=== PATIENT | female | born 1945 | race Caucasian/White ===

== ENCOUNTER 2024-11-28 13:00 | Inpatient (IN) | payer MEDICARE, OTHER, SELFPAY ==
[2024-11-28] VITALS (9 sets, daily range): BP systolic 60–116; BP diastolic 48–61; BMI 20.4; BMI 20.3
[2024-11-28 10:51] LABS: Hematocrit 34.8 % (37.0-47.0); Hemoglobin 12.9 g/dL (12.0-16.0); Mean Corp Hgb Conc. 37.1 g/dL (33.0-37.0); Mean Corpuscular Volume 94.6 fL (81.0-99.0); Nucleated Red Blood Cells % 0 %; Platelet Count 176 10^3/uL (130-400); Red Cell Dist. Width 15.5 % (11.5-14.5)
[2024-11-28 11:12] LABS: APTT 34.1 Sec (23.4-35.0); INR 1.66; PT 19.8 Sec (11.4-14.6)
[2024-11-28 11:27] LABS: Blood Urea Nitrogen 50 mg/dl (7-17); Calcium 8.4 mg/dl (8.4-10.2); Carbon Dioxide 20 mmol/L (22-30); Chloride 99 mmol/L (98-107); Estimated Creatinine Clearance 26 ml/min; Glucose 136 mg/dl (70-99); Sodium 126 mmol/L (135-145); eGFR 41.31
--- NOTE | 2024-11-28 12:01 | ED.GENMED ---
History of Present Illness
General
Chief Complaint: Abdominal Symptoms
Source: patient
Exam Limitations: none
Time Seen by Provider: 11/28/24 10:48
Nursing documentation reviewed up to this point in time: agreed with
History of Present Illness
History of Present Illness:
79-year-old female with a history of former alcohol abuse and liver cirrhosis, history of hyponatremia, A-fib status post pacer/ICD on Eliquis
Presents for fatigue, increasing weight gain and edema in her legs and abdomen and nausea with abnormal outpatient labs. Patient says she got diagnosed with cirrhosis in May 2024 at [facility] where she was hospitalized for period of
time. During that admission she was hyponatremic and was on fluid restriction but says she is no longer needing to be on fluid restriction. Within the last month patient has had several pounds weight gain and she saw her reporting developer at
[facility] about 2 weeks ago who doubled her spironolactone from 50 mg to 100 daily and doubled her furosemide from 20 mg to 40 daily. Patient has been compliant with this but continuing to gain weight. She feels uncomfortable in her
abdomen although she is not having significant tenderness or fevers. Patient scheduled for paracentesis in 2 weeks but she does not feel like she can wait that long. She had outpatient labs yesterday with the results today that her sodium was 123.
Patient is not confused and is at her baseline mental status.
She does have a history of cardiomyopathy previously but her EF recovered she believes.
Past History
Past History
ED Past Medical History: CAD, Cancer (Breast), CHF and Hypothyroidism
ED Past Surgical History: Cardiac (AICD/pacemaker)
Social History
Tobacco: Non-smoker
Review of Systems
Review of Systems
Allergies reviewed?: Yes
All Other Systems: Not applicable
Phy Exam
Physical Exam
Physical Exam:
GENERAL: Alert , in no apparent distress
EYE: pupils equal and reactive
NECK: Supple
ENT: o/p clr, mmm.
CARDIAC: Regular rate and rhythm . Moderate pitting edema symmetric bilateral knees down to feet
LUNGS: Clear breath sounds bilaterally, no acute respiratory distress, no wheezes/rales/rhonchi
ABDOMEN: Soft, moderately distended, soft, fluid wave, no tenderness ut focal tenderness, no r/g, no cvat, normal bowel sounds
NEUROLOGICAL: Alert and oriented, no focal neuro deficits
SKIN: Warm and dry, skin intact. Slightly icteric
MUSCULOSKELETAL: Moderate pitting edema, well perfused. neg daisy's sign
PSYCH: Normal and appropriate interaction.
Course
Orders/Labs/Results
Orders:
Orders
11/28/24 09:55
Electrocardiogram (*1) Urgent
Reason for Study: Fatigue / Weakness
EKG- Treatment ONCE
11/28/24 10:42
Basic Metabolic Panel Urgent
Complete Blood Count/With Diff Urgent
INR [Prothrombin Time] Urgent
PTT Urgent
11/28/24 11:40
Consult Interventional Radiology [IRAD CONSULT] Urgent
Consulting Provider: Arturo Leal
Was physician already notified: Yes
Procedure being ordered, including laterality if applicable: paracentesis
Acknowledgement that appropriate orders are entered: Yes
CR Chest - 2 Views Urgent
Comment:
Reason For Exam: edema
11/28/24 11:50
Ammonia Urgent
Comprehensive Metabolic Panel Urgent
NT-proBNP Urgent
Osmolality, Random Urine Urgent
Date Specimen was Collected: 11/28/24
Time Specimen was Collected: 11:46
Urinalysis Reflex To Culture Urgent
Date Specimen was Collected: 11/28/24
Time Specimen was Collected: 11:46
Urine Microscopic Reflex Cult Urgent
Urine Sodium Urgent
Date Specimen was Collected: 11/28/24
Time Specimen was Collected: 11:46
11/28/24 12:35
Body Fluid Amylase Routine
Fluid Source: Peritoneal (Ascites)
Body Fluid Cell Count Routine
What is the Body Fluid: peritoneal fluid
Comment: post procedure
Body Fluid LDH Routine
Fluid Source: Peritoneal (Ascites)
Body Fluid Protein Routine
Fluid Source: Peritoneal (Ascites)
Fluid Culture with Gram Stain Routine
ALICIA Source: Peritoneal Fluid
Specimen Description:
Comment: Post Procedure
IRAD Cytology Routine
Source: Peritoneal Fluid
Clinical Impression: Cirrhosis
11/28/24 12:36
Notify MD As Directed
Notify physician if: Notify Janet Rankin PA-C of volume removed when paracentesis complete.
11/28/24 12:39
Admit/Transfer Patient As Directed
Co-Sign Provider:
Level of Care: Inpatient admission
Assign to:: Medical/Surgical
Physician / Group: Natasha
Diagnosis: Hyponatremia, Ascites
Reason for Hospitalization: Paracentesis, Diuresis
Expected length of stay greater than two midnights?: Yes
ELOS- Estimated Length of Stay in days: 3
I certify the patient meets the requirements for IP care: Yes
PRN Pain Medication Management As Directed
May give lesser potent ordered pain med per pt: Yes
preference::
Protocol:: Medication orders for pain may be administered in a
manner that supports deferring to patient preference
when the pt is:
- Requesting an ordered lesser potent pain medication.
Least to most potent pain medications are defined
as: acetaminophen < NSAID < tramadol < opioids
(morphine, oxycodone, hydromorphone).
- Requesting a lesser dose of the same medication IF
ORDERED.
- Requesting a less intrusive route of administration
if both routes are prescribed by the provider (PO <
IV).
11/28/24 12:40
Code Status As Directed
Resuscitation Status: Full Code
Abnormal Lab Results
11/28/24 11/28/24
10:42 11:50
RBC 3.68 L 10^6/uL
(4.20-5.40)
Hct 34.8 L %
(37.0-47.0)
MCH 35.1 H pg
(27.0-31.0)
MCHC 37.1 H g/dL
(33.0-37.0)
RDW 15.5 H %
(11.5-14.5)
Abs Immat Gran (auto) 0.1 H 10^3/uL
(0-0.05)
Absolute Neuts (auto) 8.2 H 10^3/uL
(1.4-6.5)
Absolute Lymphs (auto) 0.9 L 10^3/uL
(1.2-3.4)
Absolute Monos (auto) 1.1 H 10^3/uL
(0.1-0.6)
Immature Gran % 1.0 H %
(0-0.5)
Neutrophils % 79.2 H %
(42.2-75.2)
Lymphocytes % 8.4 L %
(20.5-51.1)
Monocytes % 10.4 H %
(1.7-9.3)
PT 19.8 H Sec
(11.4-14.6)
Sodium 126 L mmol/L 124 L mmol/L
(135-145) (135-145)
Chloride 97 L mmol/L
(98-107)
Carbon Dioxide 20 L mmol/L 21 L mmol/L
(22-30) (22-30)
BUN 50 H mg/dl 49 H mg/dl
(7-17) (7-17)
Creatinine 1.3 H mg/dL 1.4 H mg/dL
(0.6-1.0) (0.6-1.0)
Glucose 136 H mg/dl 101 H mg/dl
(70-99) (70-99)
Calcium 7.7 L mg/dl
(8.4-10.2)
AST 87 H U/L
(14-36)
ALT 69 H U/L
(0-35)
Albumin 2.8 L g/dl
(3.5-5.0)
Urine Albumin (Reflex) 1+ A
(Neg - Trace)
11/28/24 10:42
11/28/24 11:50
Vital Signs
Initial and Last Documented VS:
Initial Vital Signs
Temp Pulse Resp BP Pulse Ox
36.3 C 65 16 98/52 99
11/28/24 10:00 11/28/24 10:00 11/28/24 10:00 11/28/24 10:00 11/28/24 10:00
Last Documented Vital Signs
Temp Pulse Resp BP Pulse Ox
37.0 C 60 11 94/55 98
11/28/24 11:00 11/28/24 12:30 11/28/24 12:30 11/28/24 12:22 11/28/24 12:30
MDM/Problems Addressed
Differential Diagnosis Includes:
Heart failure, cirrhosis and third spacing, hyponatremia, SIADH, overdiuresis,
MDM/Problems Addressed:
79 y/o F cirrhosis (s/p para x 31 may 2024 [facility]) [facility]
inc edema/weight gain x 2 weeks; doubled diuretics; sodium 123 outpatient/126 here; fatigued, nausea/weak
IR consulted for para (therapeutic)
*Pulse Oximetry
SaO2: 98
Oxygen Mode of Delivery: Room air
Patient hypoxic: no (99)
*Critical Care Note
Total Time (30-74mins, 75-104mins- exclusive of procedures): Not Applicable
ED Attending Note
-
Portions of this chart may have been created with voice recognition software.� Occasional wrong word or��sound alike� substitutions may have occurred due to the inherent limitations of voice recognition software.
Discharge Plan
Departure
Patient Disposition: Admit
Date of Disposition: 11/28/24
Time of Disposition: 12:13
Admit to: Telemetry
Presentation/result/management discussed w/ accepting MD/DO: Hospitalist
Condition: Fair
Covid-19: Not Applicable
Discharge Problem:
Hyponatremia, Edema, Cirrhosis of liver, Ascites
Interventions
Interventions:
*Risk Screen - Suicide Last Done: 11/28/24 11:00
*General Assessment Last Done: 11/28/24 11:00
*Neglect/Abuse Screening Last Done: 11/28/24 11:00
*ED- Fall Risk Assessment Last Done: 11/28/24 11:00
*ED COVID-19 Vaccine History Last Done: 11/28/24 11:00
*Nursing Disposition Last Done: 11/28/24 14:12
DQ-Rijvxo-Deoenoszxb Assessment Last Done: 11/28/24 11:00
Discharge Date and Time
Discharge Date/Time: 11/28/24 14:16
[2024-11-28 12:21] LABS: Ammonia 27 umol/L (9-30)
[2024-11-28 12:28] LABS: ALT (SGPT) 69 U/L (0-35); AST (SGOT) 87 U/L (14-36); Albumin 2.8 g/dl (3.5-5.0); Alkaline Phosphatase 124 U/L (38-126); Blood Urea Nitrogen 49 mg/dl (7-17); Calcium 7.7 mg/dl (8.4-10.2); Carbon Dioxide 21 mmol/L (22-30); Chloride 97 mmol/L (98-107); Estimated Creatinine Clearance 24 ml/min; Glucose 101 mg/dl (70-99); Potassium 4.8 mmol/L (3.5-5.1); Sodium 124 mmol/L (135-145); Total Protein 6.4 g/dl (6.3-8.2); eGFR 37.80
--- NOTE | 2024-11-28 12:42 | HPS.HSE ---
Family Physician
-
Family Physician: Ugo Kendall
Chief Complaint
-
Increasing abdominal distension and lower extremity edema
History of Present Illness
Patient is an 79 y/o female past medical history of heart failure with recovered EF, paroxysmal atrial fibrillation, alcoholic cirrhosis, asthma, hyperlipidemia, and hypothyroidism who presents with increased abdominal distension and lower extremity
edema. Patient reports earlier this year she was hospitalization at [facility] due to a GI illness and that time she had a paracentesis. She reports doing well up until about the end of September when she started with increased distention and
lower extremity edema. She contacted her liver specialist who instructed her to double her diuretics and have blood work completed after 2 weeks which she completed yesterday. Patient reports some increasing dyspnea on exertion and slight dry
cough. She denies fevers, sweats or chills.
Medical History
Past Medical History
Past Medical History: Reports Other
Additional Past Medical History:
Congestive Heart Failure with Recovered EF
Cardiomyopathy s/p ICD
Paroxysmal Atrial Fibrillation
Alcoholic Cirrhosis
Asthma
Hyperlipidemia
Hypothyroidism
Depression
GERD
Left Breast Cancer s/p Lumpectomy
Past Surgical History: Reports Other
Additional Past Surgical History:
Left Breast Lumpectomy
Pacemaker/Defibrillator
Bilateral Cataracts
Social History
Tobacco: Former Smoker (Quit about 40 years ago)
Alcohol: Former (Sober since 2019)
Family History
Family History: Not pertinent
Allergies / Home Medications
Allergies reflects when Allergies were last updated in [employer].
Home Medications with original date entered in [employer]
Allergy/Medication List:
Allergies
Allergy/AdvReac Type Severity Reaction Status Date / Time
No Known Allergies Allergy Unverified 11/16/19 04:45
Home Medications
apixaban 5 mg tablet (Eliquis) 5 mg PO BID #60 tabs 11/16/19
fluticasone propionate 50 mcg/actuation nasal spray,suspension 2 spray intranasal HS Allergies 11/16/19
levothyroxine 100 mcg tablet 100 mcg PO DAILY Thyroid 11/16/19
rosuvastatin 5 mg tablet 5 mg PO QPM High cholesterol 11/16/19
amiodarone 200 mg tablet 200 mg PO DAILY 11/28/24
carvedilol 12.5 mg tablet 25 mg PO BID 11/28/24
fluticasone furoate 200 mcg/actuation blister powder for inhalation (Arnuity Ellipta) 1 inh inhalation DAILY 11/28/24
furosemide 40 mg tablet 40 mg PO DAILY 11/28/24
latanoprost 0.005 % eye drops 1 drp ophthalmic (eye) DAILY 11/28/24
lisinopril 5 mg tablet 2.5 mg PO DAILY 11/28/24
pantoprazole 40 mg tablet,delayed release 40 mg PO DAILY 11/28/24
spironolactone 100 mg tablet 100 mg PO DAILY 11/28/24
Review of Systems
-
History Source: Patient
A 12 point ROS was completed and negative except as noted: Yes
Constitutional: Denies Fever or Chills
Respiratory: Denies Cough or Trouble Breathing
Cardiac: Denies Chest Pain or Palpitations
Abdomen/GI: Denies Abdominal Pain, Nausea, Vomiting, Diarrhea or Constipated
Physical Exam
Vital Signs
Vital Signs
Temp Pulse Resp BP Pulse Ox
98.6 F 60 14 94/55 98
11/28/24 11:00 11/28/24 12:22 11/28/24 12:22 11/28/24 12:22 11/28/24 12:22
Physical Exam
General: Well Developed, Well Nourished and No Apparent Distress
HEENT: NormoCephalic, Anicteric, Moist mucous membranes and Atraumatic
Respiratory: Clear and Non Labored Respirations; No Wheezes, Rales or Rhonchi
Cardiac: S1/S2 and Regular Rhythm; No Murmur
GI: Soft, Non Tender and Distended (Positive Fluid Wave)
Rectal: Deferred by Provider
Musculoskeletal: No Clubbing, No Cyanosis and Other (Trace edema bilateral ankles)
Skin: Warm and Dry; No Rash
Neuro: Awake, Alert, Oriented and Nonfocal/grossly intact
Psych: Calm
Laboratory Results
-
11/28/24 10:42
11/28/24 11:50
Laboratory Results
PT 19.8 Sec (11.4-14.6) H 11/28/24 10:42
INR 1.66 11/28/24 10:42
APTT 34.1 Sec (23.4-35.0) 11/28/24 10:42
Total Bilirubin 1.3 mg/dl (0.2-1.3) 11/28/24 11:50
AST 87 U/L (14-36) H 11/28/24 11:50
ALT 69 U/L (0-35) H 11/28/24 11:50
Alkaline Phosphatase 124 U/L (38-126) 11/28/24 11:50
Data Reviewed
-
Lab Data: Labs Reviewed by me
Old Records: Reviewed
Impression/Plan
-
Hyponatremia, likely hypervolemic in setting of edema and ascites
-Await urine electrolytes
-Continue fluid restriction
-Consult Nephrology
Abdominal Ascites secondary to Alcoholic Cirrhosis
-Consult IR for paracentesis
-Will likely need albumin given in setting of low blood pressure and hyponatremia
Acute Kidney Injury, likely related to increased diuretics
-Hold furosemide and spironolactone
-Continue to monitor creatinine closely
Congestive Heart Failure with Recovered EF
Hx Cardiomyopathy s/p ICD
-Monitor Is&Os and Daily Weights
-Diuretics on hold due to YEISON
Paroxysmal Atrial Fibrillation
-Hold Coreg due ot hypotension
-Continue amiodarone
-Continue Eliquis for anticoagulation
Asthma, no acute exacerbation
-Continue fluticasone
Hyperlipidemia
-Continue Crestor
Hypothyroidism
-Check TSH
-Continue levothyroxine
GERD
-Continue Protonix
Hx Left Breast Cancer s/p Lumpectomy
DVT proph: Eliquis
Code Status: Full Code
[2024-11-28 13:57] LABS: Urine Character Clear (Clear)
--- NOTE | 2024-11-28 14:08 | W.PN.UPDATE ---
Update Note
Progress Note Update
This is an addendum to H&P written by Janet Arzola on 11/28/2024. �Patient seen and examined independently with PA.
79-year-old female past medical history of alcoholic cirrhosis, ischemic cardiomyopathy with recovered EF, paroxysmal atrial fibrillation on Eliquis, asthma, hypothyroidism, hyperlipidemia, breast cancer, presenting for worsening abdominal
distention and lower extremity edema.
Recently hospital to [place] earlier this year for some sort of GI infection. �Doing well until end of September with increasing abdominal distention. �Diuretics doses doubled 2 weeks ago.
Labs show hyponatremia with sodium of 126, creatinine of 1.3, transaminitis. �Cardiac BNP of 560.
Chest x-ray shows no acute process.
Patient with ascites secondary to underlying alcoholic cirrhosis.
Patient with ascites secondary to underlying alcoholic cirrhosis. �No signs of SBP. �Patient hypotensive with hyponatremia secondary to volume overload. �YEISON appears to be prerenal. �Hold diuretics, antihypertensive medications. �IR consulted for
paracentesis. �Will require albumin afterwards. �GI and nephrology consulted.
--- NOTE | 2024-11-28 14:11 | EDRN ---
IR called this RN and verbal report was given, per IR nurse the pt can go to her room after, this RN called the receiving unit and paper report was tubed up
--- NOTE | 2024-11-28 14:37 | W.CON.NEPH ---
Addendum entered and electronically signed by Cm Doe MD 11/28/24 17:31:
Hyponatremia as a result of liver failure. Improvement of hemodynamics should control the hyponatremia.
If sodium continues to fall, hypertonic saline could be considered
Original Note:
Consultation
-
Date/Time Consultation Requested: 11/28/2024 2 PM
Date/Time Consultation Performed: 11/28/2024 2 PM
Requesting Provider: Dr. Kaur
Performing Provider: Dr. Doe
Reason for Consultation: YEISON, hyponatremia
Medical History
-
Chief Complaint: YEISON, hyponatremia, hypotension
History of Present Illness:
This is an 79-year-old female who has alcoholic cirrhosis followed by [facility] gastroenterology hepatology. He has paroxysmal atrial fibrillation on Eliquis therapy and rate control with beta-garland therapy. She also is on
amiodarone. She has hypertension on a multidrug regimen as well as hyperlipidemia on statin therapy. These have been fairly stable for her. She does report that she has chronically lower blood pressures typically in the 90 systolic range. About
2 weeks ago she had reported increasing abdominal distention. The edema was generally not an issue for her. Because of this it was recommended that she double her diuretic dosing including her Lasix and spironolactone from 20 mg and 50 mg
respectively up to 40 mg and 100 mg respectively daily. Tomorrow the 14 day. She reports that there is no additional diuresis with this higher dosing. If anything her ascites and abdominal distention worsened. She had the chemo because of
these issues and also because outpatient paracentesis scheduled by [facility] was not until December 11. At the time of admission she did have significant ascites and underwent paracentesis for 2.3 L. She was also noted to have a
sodium level of 124 and a creatinine of 1.4. Last known creatinine was 0.6 in 2019.
Past Medical History
Congestive Heart Failure with Recovered EF
Paroxysmal Atrial Fibrillation
Alcoholic Cirrhosis
Asthma
Hyperlipidemia
Hypothyroidism
Depression
GERD
Left Breast Cancer s/p Lumpectomy
Pacemaker/Defibrillator
Bilateral Cataracts
Social History
Tobacco: Former Smoker
Alcohol: None
Family History
Family History: Not Pertinent
Allergies / Home Medications
Allergy/AdvReac Type Severity Reaction Status Date / Time
No Known Allergies Allergy Unverified 11/16/19 04:45
�Medication �Instructions �Recorded �Confirmed �Type
fluticasone propionate 50 2 spray intranasal HS Allergies 11/16/19 11/28/24 History
mcg/actuation nasal
spray,suspension
levothyroxine 100 mcg tablet 100 mcg PO DAILY Thyroid 11/16/19 11/28/24 History
rosuvastatin 5 mg tablet 5 mg PO QPM High cholesterol 11/16/19 11/28/24 History
Bcaa Capsules 1,000 mg PO DAILY@1200 11/28/24 11/28/24 History
amiodarone 200 mg tablet 200 mg PO DAILY 11/28/24 11/28/24 History
apixaban 5 mg tablet (Eliquis) 2.5 mg PO BID 11/28/24 11/28/24 History
carvedilol 12.5 mg tablet 25 mg PO BID 11/28/24 11/28/24 History
fluticasone furoate 200 1 inh inhalation R DAILY 11/28/24 11/28/24 History
mcg/actuation blister powder for
inhalation (Arnuity Ellipta)
furosemide 40 mg tablet 40 mg PO DAILY 11/28/24 11/28/24 History
latanoprost 0.005 % eye drops 1 drp LEFT EYE HS 11/28/24 11/28/24 History
lisinopril 5 mg tablet 2.5 mg PO DAILY 11/28/24 11/28/24 History
pantoprazole 40 mg tablet,delayed 40 mg PO DAILY 11/28/24 11/28/24 History
release
spironolactone 100 mg tablet 100 mg PO DAILY 11/28/24 11/28/24 History
Review of Systems
-
Imbalance, bloating
No chest pain or shortness of breath
No change in edema
All other systems: Negative unless noted
Physical Exam
Vital Signs
Vital Signs
Temp Pulse Resp BP Pulse Ox
97.7 F 60 15 109/61 99
11/28/24 14:20 11/28/24 14:20 11/28/24 14:20 11/28/24 14:20 11/28/24 14:20
Lab Results
WBC 10.3 10^3/uL (4.8-10.8) 11/28/24 10:42
RBC 3.68 10^6/uL (4.20-5.40) L 11/28/24 10:42
Hgb 12.9 g/dL (12.0-16.0) 11/28/24 10:42
Hct 34.8 % (37.0-47.0) L 11/28/24 10:42
Plt Count 176 10^3/uL (130-400) 11/28/24 10:42
Potassium 4.8 mmol/L (3.5-5.1) 11/28/24 11:50
Chloride 97 mmol/L (98-107) L 11/28/24 11:50
Carbon Dioxide 21 mmol/L (22-30) L 11/28/24 11:50
BUN 49 mg/dl (7-17) H 11/28/24 11:50
Creatinine 1.4 mg/dL (0.6-1.0) H 11/28/24 11:50
eGFR 37.80 11/28/24 11:50
Glucose 101 mg/dl (70-99) H 11/28/24 11:50
Calcium 7.7 mg/dl (8.4-10.2) L 11/28/24 11:50
Jet-C-Exvmsejapni Pept 569 pg/ml 11/28/24 11:50
Albumin 2.8 g/dl (3.5-5.0) L 11/28/24 11:50
Laboratory Tests
11/28/24
11:50
Urine Osmolality 319
Urine Sodium 66
Urine Glucose Negative
Urine Albumin (Reflex) 1+ A
Laboratory Tests
11/28/24
11:50
Hyaline Casts >15
Granular Casts >15
Physical Exam
Patient is awake alert oriented and in no distress. Mood and affect were pleasant, insight and judgment were good. Pupils are equal round and reactive to light, extraocular movements are intact, sclera were anicteric. Hearing was normal, ears and
nose are intact. Oropharynx was clear. Neck was supple with trachea midline and no thyromegaly. Heart was regular rate and rhythm without rubs. Lower extremities with 1+ edema. Lungs were clear to auscultation bilaterally and with normal
excursion. Abdomen was soft, nontender, mild distention, with normal active bowel sounds, and no hepatosplenomegaly. Skin was without rash and with normal turgor.
Data Reviewed
-
Radiology: Image Personally Visualized and interpreted (Chest x-ray 11/28/2024 by my reading no acute disease)
Medical Tests (Nuc Med, Echo etc): Image Personally Visualized and interpreted (EKG 11/28/2024 by reading shows AV paced rhythm)
Labs: Labs Reviewed by me
Old Records: Requested
Assessment/Plan
-
Assessment
Cirrhosis
Ascites
YEISON
Hyponatremia
Paroxysmal atrial fibrillation
Hypothyroid
History of left breast cancer with lumpectomy
Hypotension
Plan
Obtain old records
Hold Lasix and spironolactone
IV albumin course
No need for midodrine at this time
I suspect that she is intravascularly depleted at this time.
Follow BMP
Discussed with patient and her children
[2024-11-28 14:51] LABS: Urine Squamous Cell 0-2 /LPF (Few)
[2024-11-28 14:53] LABS: Urine Red Blood Cell 0-2 /HPF (0-2)
[2024-11-28 16:03] LABS: Body Fluid Second Tech FB
[2024-11-28] MEDS: FLEXBUMIN 50 IV (16:14)
[2024-11-28] MEDS: CRESTOR 5 MG PO (17:14)
[2024-11-28] MEDS: FLEXBUMIN 100 IV (18:08)
[2024-11-28 19:24] LABS: Sodium 121 mmol/L (135-145)
[2024-11-28] MEDS: SODIUM CHLORIDE 3% 250 IV (19:58)
[2024-11-28] MEDS: ELIQUIS 2.5 MG PO (20:07)
[2024-11-28] MEDS: XALATAN OPHTHALMIC SOLUTION 1 DROP LEFT EYE (21:27)
--- NOTE | 2024-11-28 21:53 | PTCARENOTE ---
Repeat sodium 121. OUTSIDE SALES ENGINEER notified, 3% NaCl ordered. BMP ordered for 0000. pt aaox3 and call abbasi within reach. Plan of care ongoing.
[2024-11-29 00:59] LABS: Blood Urea Nitrogen 44 mg/dl (7-17); Calcium 8.0 mg/dl (8.4-10.2); Carbon Dioxide 20 mmol/L (22-30); Chloride 101 mmol/L (98-107); Estimated Creatinine Clearance 23 ml/min; Glucose 103 mg/dl (70-99); Potassium 4.7 mmol/L (3.5-5.1); Sodium 128 mmol/L (135-145); eGFR 37.80
[2024-11-29] MEDS: FLEXBUMIN 100 IV ×2 (01:11→10:02)
[2024-11-29] MEDS: SYNTHROID 100 MCG PO (06:27)
[2024-11-29 07:01] LABS: Hematocrit 30.5 % (37.0-47.0); Hemoglobin 11.3 g/dL (12.0-16.0); Mean Corp Hgb Conc. 37.0 g/dL (33.0-37.0); Mean Corpuscular Volume 94.1 fL (81.0-99.0); Platelet Count 137 10^3/uL (130-400); Red Cell Dist. Width 15.4 % (11.5-14.5)
[2024-11-29] MEDS: FLOVENT 110 MCG INHALER 2 PUFF INH ×2 (07:06→19:39)
[2024-11-29 07:19] VITALS: BP 113/60
[2024-11-29 07:40] LABS: ALT (SGPT) 57 U/L (0-35); AST (SGOT) 72 U/L (14-36); Albumin 3.5 g/dl (3.5-5.0); Alkaline Phosphatase 93 U/L (38-126); Blood Urea Nitrogen 41 mg/dl (7-17); Calcium 8.4 mg/dl (8.4-10.2); Carbon Dioxide 18 mmol/L (22-30); Chloride 102 mmol/L (98-107); Estimated Creatinine Clearance 24 ml/min; Glucose 74 mg/dl (70-99); Magnesium 2.2 mg/dl (1.6-2.3); Potassium 4.7 mmol/L (3.5-5.1); Sodium 128 mmol/L (135-145); Total Protein 6.5 g/dl (6.3-8.2); eGFR 41.31
[2024-11-29] MEDS: ELIQUIS 2.5 MG PO ×2 (07:53→21:13)
[2024-11-29] MEDS: PROTONIX 40 MG PO (07:53)
[2024-11-29] MEDS: PACERONE 200 MG PO (07:53)
[2024-11-29 10:33] VITALS: O2SAT 99
--- NOTE | 2024-11-29 12:02 | W.PN.NEPH.PH ---
Today's Communication / Plan
-
Continue albumin
Fluid restriction
Assessment/Plan
-
Assessment
Cirrhosis
Ascites
YEISON
Hyponatremia
Paroxysmal atrial fibrillation
Hypothyroid
History of left breast cancer with lumpectomy
Hypotension
Plan
Hold Lasix and spironolactone
IV albumin continue
No need for midodrine at this time
Follow BMP
sodium improved with 3% saline. No further indication at this time
Fluid restriction
Increase protein in diet
-
-
Date of Service: November 29, 2024
CC / HPI / ROS
-
Chief Complaint:
abdominal distention
History of Present Illness:
Acute kidney injury and hyponatremia status post paracentesis
Review of Systems:
No abdominal pain. No shortness of breath no nausea or vomiting
Labs
-
Labs:
WBC 8.4 10^3/uL (4.8-10.8) 11/29/24 06:07
RBC 3.24 10^6/uL (4.20-5.40) L 11/29/24 06:07
Hgb 11.3 g/dL (12.0-16.0) L 11/29/24 06:07
Hct 30.5 % (37.0-47.0) L 11/29/24 06:07
Plt Count 137 10^3/uL (130-400) D 11/29/24 06:07
Sodium 128 mmol/L (135-145) L 11/29/24 06:07
Potassium 4.7 mmol/L (3.5-5.1) 11/29/24 06:07
Chloride 102 mmol/L (98-107) 11/29/24 06:07
Carbon Dioxide 18 mmol/L (22-30) L 11/29/24 06:07
BUN 41 mg/dl (7-17) H 11/29/24 06:07
Creatinine 1.3 mg/dL (0.6-1.0) H 11/29/24 06:07
eGFR 41.31 11/29/24 06:07
Glucose 74 mg/dl (70-99) 11/29/24 06:07
Calcium 8.4 mg/dl (8.4-10.2) 11/29/24 06:07
Hay-W-Yibgeldoagu Pept 569 pg/ml 11/28/24 11:50
Albumin 3.5 g/dl (3.5-5.0) 11/29/24 06:07
Physical Exam
-
Vital Signs:
Vital Signs
Temp Pulse Resp BP Pulse Ox
97.9 F 61 18 113/60 99
11/29/24 07:19 11/29/24 07:53 11/29/24 07:19 11/29/24 07:53 11/29/24 10:33
Respiratory:: Bilateral: CTA
Lung Excursion:: Normal
Abdomen:: Soft
Bowel Sounds:: Normal
Extremity Edema:: +1: Bilateral:
--- NOTE | 2024-11-29 13:13 | W.PN.HOSP.TC ---
Today's Communication/Plan
-
Assessment / Plan
Assessment / Plan
General: No Apparent Distress, Comfortable and Conversant
HEENT: NormoCephalic, Moist mucous membranes, Atraumatic
Respiratory: Clear and Non Labored Respirations
Cardiac: S1/S2 and Regular Rhythm; No Rub or Gallop
GI: Soft, Non Tender, distended abdomen with positive fluid wave, normal Bowel Sounds
Musculoskeletal: No Edema, no deformity
Skin: Warm and dry
: NO Sanders
Neuro: Awake, Alert, Nonfocal/grossly intact
Psych: Calm and Intact Judgment/Insight
Ms. Santos is an 79-year-old female with a medical history of alcoholic cirrhosis, ischemic cardiomyopathy with recovered EF, paroxysmal A-fib (on Eliquis), asthma, hypothyroidism, and breast cancer who presented with significant abdominal distention
and lower extremity edema. She was finding it progressively more difficult to breathe due to her abdominal distention. Chest imaging showed no acute pulmonary pathology. Labs showed hyponatremia with a serum sodium of 126 and YEISON with a
creatinine of 1.3, in addition to mild transaminitis and a BNP of 560. She was admitted for further evaluation and management.
Decompensated cirrhosis:
- Etiology is alcohol related
- Significant ascites at time of admission, underwent paracentesis with 2.3 L off and significant improvement in abdominal discomfort and dyspnea
- Continue IV albumin
- Hold Lasix and spironolactone
- No need for midodrine at this point
YEISON:
- Mild, likely prerenal, appears stable
- Continue IV albumin to help maintain euvolemia in the setting of cirrhosis
- Holding spironolactone and Lasix and lisinopril
- Appreciate nephrology guidance
Hyponatremia:
- Moderate
- No acute neurologic symptoms
- Continue fluid restriction
- Correcting appropriately, will continue to monitor closely
- Appreciate nephrology guidance
Ischemic cardiomyopathy:
- Recovered LVEF
- Holding Lasix and spironolactone for now considering YEISON, will restart as able
- Continue beta-blockade with carvedilol 25 mg twice daily
- Holding home lisinopril due to YEISON will restart as able
- Continue home statin
Paroxysmal A-fib:
- Currently rate controlled
- Continue home amiodarone 200 mg daily anticoagulation with low-dose Eliquis
DVT prophylaxis: Eliquis
CODE STATUS: Full code
Total time spent on today's encounter was 37 minutes
Anticipated Discharge: 24 - 48 hours
Subjective/Interval History
-
Date of Service: November 29, 2024
Patient was seen and examined at bedside this morning. Feeling significant relief following paracentesis yesterday with 2.3 L off. Breathing comfortably on room air. Continues on IV albumin.
Objective Data
-
Labs:
Laboratory Results
11/29/24
06:07
WBC 8.4
Hgb 11.3 L
Hct 30.5 L
Plt Count 137 D
Sodium 128 L
Potassium 4.7
Chloride 102
Carbon Dioxide 18 L
BUN 41 H
Creatinine 1.3 H
Glucose 74
Calcium 8.4
Total Bilirubin 1.4 H
AST 72 H
ALT 57 H
Alkaline Phosphatase 93
Vital Signs:
Vital Signs
Temp Pulse Resp BP Pulse Ox
97.9 F 61 18 113/60 99
11/29/24 07:19 11/29/24 07:53 11/29/24 07:19 11/29/24 07:53 11/29/24 10:33
I&O
11/28/24 11/29/24 11/30/24
06:59 06:59 06:59
Intake Total 480 / 480
Balance 480 / 480
Review of Systems
-
History Source: Patient
All other systems: Reviewed and negative
Physical Exam
-
General: No Apparent Distress
[2024-11-29 15:03] VITALS: BP 104/54
--- NOTE | 2024-11-29 16:13 | CM ---
Patient seen at bedside
IA completed
Dx: hyponatremia, ascities
paracentesis on 11/28
PMH: alcoholic cirrhosis, ischemic cardiomyopathy with recovered EF, paroxysmal A-fib (on Eliquis), asthma, hypothyroidism, and breast cancer
Lives in a 2 story home alone, 1 step to enter, flight of steps to bed/bath, powder room on 1st floor
PLOF: Independent
DME: Cane
Denies VN/Rehab
PCP: Ugo Kendall
Pharmacy: [facility] [address] [place]
PLAN: TBD, follow hospital progress, CM to follow for needs
[2024-11-29] MEDS: CRESTOR 5 MG PO (17:06)
[2024-11-29] MEDS: XALATAN OPHTHALMIC SOLUTION 1 DROP LEFT EYE (21:13)
[2024-11-29 23:04] VITALS: BP 122/63
[2024-11-30 06:00] VITALS: BMI 20.2
[2024-11-30 07:10] VITALS: BP 123/63
[2024-11-30] MEDS: SYNTHROID 100 MCG PO (07:15)
[2024-11-30] MEDS: FLOVENT 110 MCG INHALER 2 PUFF INH ×2 (07:30→19:27)
[2024-11-30] MEDS: PROTONIX 40 MG PO (07:47)
[2024-11-30] MEDS: ELIQUIS 2.5 MG PO ×2 (07:48→20:13)
[2024-11-30] MEDS: PACERONE 200 MG PO (07:48)
[2024-11-30 07:49] LABS: Blood Urea Nitrogen 33 mg/dl (7-17); Calcium 8.6 mg/dl (8.4-10.2); Carbon Dioxide 19 mmol/L (22-30); Chloride 102 mmol/L (98-107); Estimated Creatinine Clearance 26 ml/min; Glucose 78 mg/dl (70-99); Potassium 4.4 mmol/L (3.5-5.1); Sodium 130 mmol/L (135-145); eGFR 45.48
--- NOTE | 2024-11-30 12:08 | W.PN.HOSP.TC ---
Today's Communication/Plan
-
Assessment / Plan
Assessment / Plan
General: No Apparent Distress, Comfortable and Conversant
HEENT: NormoCephalic, Moist mucous membranes, Atraumatic
Respiratory: Clear and Non Labored Respirations
Cardiac: S1/S2 and Regular Rhythm; No Rub or Gallop
GI: Soft, Non Tender, distended abdomen with positive fluid wave, normal Bowel Sounds
Musculoskeletal: No Edema, no deformity
Skin: Warm and dry
: NO Sanders
Neuro: Awake, Alert, Nonfocal/grossly intact
Psych: Calm and Intact Judgment/Insight
Ms. Santos is an 79-year-old female with a medical history of alcoholic cirrhosis, ischemic cardiomyopathy with recovered EF, paroxysmal A-fib (on Eliquis), asthma, hypothyroidism, and breast cancer who presented with significant abdominal distention
and lower extremity edema. She was finding it progressively more difficult to breathe due to her abdominal distention. Chest imaging showed no acute pulmonary pathology. Labs showed hyponatremia with a serum sodium of 126 and YEISON with a
creatinine of 1.3, in addition to mild transaminitis and a BNP of 560. She was admitted for further evaluation and management.
Decompensated cirrhosis:
- Etiology is alcohol related
- Significant ascites at time of admission, underwent paracentesis with 2.3 L off and significant improvement in abdominal discomfort and dyspnea
- Has been given IV albumin
- Continue to hold Lasix and spironolactone
- No need for midodrine at this point
- Spoke with patient's primary life skills coordinator volunteer at [facility], Dr. Arturo Whyte, who recommended a repeat paracentesis during this admission followed by scheduled weekly paracenteses but holding any further diuretics, he will follow-up with her in
the outpatient setting for planning of potential long-term interventions
YEISON:
- Mild, likely prerenal, appears stable but not at baseline
- Holding diuretics indefinitely, can continue holding home lisinopril for now considering blood pressures acceptable
- Appreciate nephrology guidance
Hyponatremia:
- Improved, now mild with a serum sodium of 130 on morning labs
- No acute neurologic symptoms
- Continue fluid restriction
- Appreciate nephrology guidance
Ischemic cardiomyopathy:
- Recovered LVEF
- Holding Lasix and spironolactone indefinitely considering YEISON
- Continue beta-blockade with carvedilol 25 mg twice daily
- Holding home lisinopril due to YEISON, will restart as able
- Continue home statin
Paroxysmal A-fib:
- Currently rate controlled
- Continue home amiodarone 200 mg daily anticoagulation with low-dose Eliquis
DVT prophylaxis: Eliquis
CODE STATUS: Full code
Total time spent on today's encounter was 42 minutes
Anticipated Discharge: 24 - 48 hours
Subjective/Interval History
-
Date of Service: November 30, 2024
Patient was seen and examined at bedside this morning. Appears to have a significant amount of reaccumulating ascitic fluid and feels more uncomfortable today. Renal function remains stable but not at baseline. Serum sodium has improved.
Objective Data
-
Labs:
Laboratory Results
11/30/24
06:48
Sodium 130 L
Potassium 4.4
Chloride 102
Carbon Dioxide 19 L
BUN 33 H
Creatinine 1.2 H
Glucose 78
Calcium 8.6
Vital Signs:
Vital Signs
Temp Pulse Resp BP Pulse Ox
98.2 F 60 16 123/63 97
11/30/24 07:10 11/30/24 07:48 11/30/24 07:31 11/30/24 07:48 11/30/24 07:31
I&O
11/29/24 11/30/24 12/01/24
06:59 06:59 06:59
Intake Total 480 / 480 840 / 840
Balance 480 / 480 840 / 840
Review of Systems
-
History Source: Patient
All other systems: Reviewed and negative
Physical Exam
-
General: No Apparent Distress
--- NOTE | 2024-11-30 12:17 | W.PN.UPDATE ---
Update Note
Progress Note Update
Spoke with patient's primary application security engineer at [facility], Dr. Arturo Whyte, who recommended a repeat paracentesis during this admission followed by scheduled weekly paracenteses and holding any further diuretics. He will follow-up with her in the
outpatient setting for planning of potential long-term interventions.
[2024-11-30 14:17] VITALS: BP 139/67; BP_SYST 60
--- NOTE | 2024-11-30 14:54 | CM ---
Patient seen at bedside with son Martin
states awaiting paracentesis today
per hospitalist patient will need weekly gary here at IR
ASHLIE spoke to Chen the efficiency manager in IR who stated she spoke with the hospitalist regarding process of prn paracentesis, post-procedure albumin and that the order would need to come from the GI physician who is following her (Dr. Whyte at [facility])
PLAN: Home, no needs anticipated
[2024-11-30 15:19] VITALS: BP 112/57
[2024-11-30 15:45] LABS: Body Fluid Second Tech HB
[2024-11-30 15:56] VITALS: BP 134/65
[2024-11-30] MEDS: CRESTOR 5 MG PO (17:59)
[2024-11-30] MEDS: FLEXBUMIN 50 IV (19:07)
[2024-11-30] MEDS: XALATAN OPHTHALMIC SOLUTION 1 DROP LEFT EYE (20:14)
[2024-11-30 23:20] VITALS: BP 126/58
[2024-12-01] MEDS: SYNTHROID 100 MCG PO (05:39)
[2024-12-01 07:15] VITALS: BP 135/62
[2024-12-01 08:11] LABS: Blood Urea Nitrogen 31 mg/dl (7-17); Calcium 8.8 mg/dl (8.4-10.2); Carbon Dioxide 21 mmol/L (22-30); Chloride 101 mmol/L (98-107); Estimated Creatinine Clearance 32 ml/min; Glucose 83 mg/dl (70-99); Potassium 4.3 mmol/L (3.5-5.1); Sodium 128 mmol/L (135-145); eGFR 56.60
[2024-12-01] MEDS: FLOVENT 110 MCG INHALER 2 PUFF INH (08:18)
[2024-12-01] MEDS: PACERONE 200 MG PO (09:31)
[2024-12-01] MEDS: ELIQUIS 2.5 MG PO (09:32)
[2024-12-01] MEDS: PROTONIX 40 MG PO (09:32)
--- NOTE | 2024-12-01 11:43 | W.DCSUMMARY ---
Discharge Summary
Discharge Data
Date of Admission: 11/28/24
Date of Discharge: 12/01/24
Total time spent discharging patient (in min): 40
-
Pending Results: No
Hospital Course
Ms. Santos is an 79-year-old female with a medical history of alcoholic cirrhosis, ischemic cardiomyopathy with recovered EF, paroxysmal A-fib (on Eliquis), asthma, hypothyroidism, and breast cancer who presented with significant abdominal distention
and lower extremity edema. She was finding it progressively more difficult to breathe due to her abdominal distention. Chest imaging showed no acute pulmonary pathology. Labs showed hyponatremia with a serum sodium of 126 and YEISON with a
creatinine of 1.3, in addition to mild transaminitis and a BNP of 560. She was admitted for further evaluation and management.
She underwent paracentesis on 11/28 with 2.3 L taken off with significant improvement in her discomfort and dyspnea. She was given IV albumin post procedure. Her spironolactone lactone and Lasix were held due to YEISON. She required a second
paracentesis during her hospitalization with 1 L taken off on 11/30 and another dose of IV albumin given. I spoke with her primary geomagnetist at [facility], Dr. Arturo Whyte, who recommended continuing to hold further diuretics considering her
renal function. He also recommended scheduled weekly paracenteses in the outpatient setting. Dr. Whyte faxed paracentesis orders to the interventional radiology department at [facility]. The patient's serum sodium stabilized around 128,
which is likely her baseline at this point. She has no current neurologic symptoms. Her renal function returned to baseline. Her home Lasix and spironolactone will be discontinued indefinitely. Her home lisinopril 2.5 mg daily will be held for
now due to renal function and borderline low blood pressure. However, she will be continued on her home carvedilol. She will need to follow-up with her PCP for ongoing blood pressure monitoring and repeat labs to monitor her kidney function. She
was breathing comfortably and saturating appropriately on room air. She was medically stable for discharge to home. She will need close follow-up with her primary geomagnetist and with her PCP.
General: No Apparent Distress, Comfortable and Conversant
HEENT: NormoCephalic, Moist mucous membranes, Atraumatic
Respiratory: Clear and Non Labored Respirations
Cardiac: S1/S2 and Regular Rhythm; No Rub or Gallop
GI: Soft, Non Tender, distended abdomen with positive fluid wave, normal Bowel Sounds
Musculoskeletal: No Edema, no deformity
Skin: Warm and dry
: NO Sanders
Neuro: Awake, Alert, Nonfocal/grossly intact
Psych: Calm and Intact Judgment/Insight
Discharge Plan
-
Patient Disposition: Home (Routine Discharge)
Discharge Diagnosis/Procedures: Cirrhosis with ascites
Diet: Restrict fluids to 64 oz
Activity: As tolerated
Activity Restrictions/Additional Instructions:
Ms. Santos is an 79-year-old female with a medical history of alcoholic cirrhosis, ischemic cardiomyopathy with recovered EF, paroxysmal A-fib (on Eliquis), asthma, hypothyroidism, and breast cancer who presented with significant abdominal distention
and lower extremity edema. She was finding it progressively more difficult to breathe due to her abdominal distention. Chest imaging showed no acute pulmonary pathology. Labs showed hyponatremia with a serum sodium of 126 and YEISON with a
creatinine of 1.3, in addition to mild transaminitis and a BNP of 560. She was admitted for further evaluation and management.
She underwent paracentesis on 11/28 with 2.3 L taken off with significant improvement in her discomfort and dyspnea. She was given IV albumin post procedure. Her spironolactone lactone and Lasix were held due to YEISON. She required a second
paracentesis during her hospitalization with 1 L taken off on 11/30 and another dose of IV albumin given. I spoke with her primary geomagnetist at [facility], Dr. Arturo Whyte, who recommended continuing to hold further diuretics considering her
renal function. He also recommended scheduled weekly paracenteses in the outpatient setting. Dr. Whyte faxed paracentesis orders to the interventional radiology department at [facility]. The patient's serum sodium stabilized around 128,
which is likely her baseline at this point. She has no current neurologic symptoms. Her renal function returned to baseline. Her home Lasix and spironolactone will be discontinued indefinitely. Her home lisinopril 2.5 mg daily will be held for
now due to renal function and borderline low blood pressure. However, she will be continued on her home carvedilol. She will need to follow-up with her PCP for ongoing blood pressure monitoring and repeat labs to monitor her kidney function. She
was breathing comfortably and saturating appropriately on room air. She was medically stable for discharge to home. She will need close follow-up with her primary geomagnetist and with her PCP.
Referrals:
Ugo Kendall MD [Family Provider, Family Practice]
Arturo Leal DO [Active, Radiology]
Referral Note: Call office to arrange weekly paracenteses
Prescriptions:
Continued
levothyroxine 100 MCG tablet
100 mcg PO DAILY
rosuvastatin 5 MG tablet
5 mg PO QPM
fluticasone propionate 1 SPRAY spray,suspension
2 spray intranasal HS
latanoprost 0.005 % Drops
1 drp LEFT EYE HS
Rx Instructions:
1 drop into the left eye nightly
amiodarone 200 mg Tablet
200 mg PO DAILY
pantoprazole 40 mg Tablet,Delayed Release (Dr/Ec)
40 mg PO DAILY
Arnuity Ellipta 200 mcg/actuation Blister With Device
1 inh INHALATION R DAILY
carvedilol 12.5 MG tablet
25 mg PO BID
Bcaa Capsules
1,000 mg PO DAILY@1200
Eliquis 5 MG tablet
2.5 mg PO BID
Held
lisinopril 5 MG tablet
2.5 mg PO DAILY
Hold Instructions: Hold until follow-up with PCP for blood pressure monitoring and repeat labs to monitor kidney function
Discontinued
furosemide 40 mg Tablet
40 mg PO DAILY
spironolactone 100 mg Tablet
100 mg PO DAILY
Discharge Orders:
Discharge Patient (As Directed); Ordered 12/01/24
Ordered By: Cm Story
Discharge Date and Time
Print Language: TELUGU
--- NOTE | 2024-12-01 11:55 | CM ---
CM following re: d/c planning.
Pt for d/c today, requesting VN.
CM spoke with pt, she requests [facility] for home nursing.
Ref sent.
She will have transport home via son.
Goal: home with [facility].
--- NOTE | 2024-12-01 13:34 | W.PN.NEPH.PH ---
Today's Communication / Plan
-
FR
Assessment/Plan
-
Assessment
Cirrhosis
Ascites
YEISON
Hyponatremia
Paroxysmal atrial fibrillation
Hypothyroid
History of left breast cancer with lumpectomy
Hypotension
Plan
Hold Lasix and spironolactone
completed IV albumin
No need for midodrine at this time
Follow BMP
Na and FR only.
-
-
Date of Service: December 01, 2024
CC / HPI / ROS
-
Chief Complaint:
abdominal distention
History of Present Illness:
Acute kidney injury and hyponatremia status post paracentesis
Na stable 128
YEISON/Cr down to 1.0
BP stable
Review of Systems:
No abdominal pain. No shortness of breath no nausea or vomiting
Labs
-
Labs:
WBC 8.4 10^3/uL (4.8-10.8) 11/29/24 06:07
RBC 3.24 10^6/uL (4.20-5.40) L 11/29/24 06:07
Hgb 11.3 g/dL (12.0-16.0) L 11/29/24 06:07
Hct 30.5 % (37.0-47.0) L 11/29/24 06:07
Plt Count 137 10^3/uL (130-400) D 11/29/24 06:07
Sodium 128 mmol/L (135-145) L 12/01/24 07:22
Potassium 4.3 mmol/L (3.5-5.1) 12/01/24 07:22
Chloride 101 mmol/L (98-107) 12/01/24 07:22
Carbon Dioxide 21 mmol/L (22-30) L 12/01/24 07:22
BUN 31 mg/dl (7-17) H 12/01/24 07:22
Creatinine 1.0 mg/dL (0.6-1.0) 12/01/24 07:22
eGFR 56.60 12/01/24 07:22
Glucose 83 mg/dl (70-99) 12/01/24 07:22
Calcium 8.8 mg/dl (8.4-10.2) 12/01/24 07:22
Cra-Z-Jbisvftkzab Pept 569 pg/ml 11/28/24 11:50
Albumin 3.5 g/dl (3.5-5.0) 11/29/24 06:07
Physical Exam
-
Vital Signs:
Vital Signs
Temp Pulse Resp BP Pulse Ox
97.6 F 62 16 135/62 99
12/01/24 07:15 12/01/24 08:24 12/01/24 08:24 12/01/24 07:15 12/01/24 08:24
Cardiovascular:: Regular rate and rhythm
Respiratory:: Bilateral: CTA
Lung Excursion:: Normal
Abdomen:: Distended, Nontender and Soft
Bowel Sounds:: Normal
Extremity Edema:: None: Bilateral:
[2024-12-01 14:00] VITALS: BP 132/68
== END 2024-12-01 14:32 | disposition home health service (06) | DRG 433 ==
LOC: 3 WEST ACU 13:00
PROVIDERS: Nurse Practitioner Family; Physician Assistant; Physician Assistant Medical; Radiology Diagnostic Radiology; Radiology Vascular & Interventional Radiology; ADMITTING PHYSICIAN Hospitalist; ATTENDING PHYSICIAN Internal Medicine; CONSULT PHYSICIAN Specialist; EMERGENCY PHYSICIAN Emergency Medicine; FAMILY PHYSICIAN Family Medicine
PROC: 0W9G3ZZ Drainage of Peritoneal Cavity, Percutaneous Approach (ICD-10-PCS; 2024-11-28)
DX: K70.31 Alcoholic cirrhosis of liver with ascites (principal); E87.1 Hypo-osmolality and hyponatremia; N17.9 Acute kidney failure, unspecified; I50.32 Chronic diastolic (congestive) heart failure; E03.9 Hypothyroidism, unspecified; J45.909 Unspecified asthma, uncomplicated; I25.5 Ischemic cardiomyopathy; I48.0 Paroxysmal atrial fibrillation; Z79.899 Other long term (current) drug therapy; Z79.890 Hormone replacement therapy; I11.0 Hypertensive heart disease with heart failure; E78.00 Pure hypercholesterolemia, unspecified; Z95.810 Presence of automatic (implantable) cardiac defibrillator; F32.A Depression, unspecified; K21.9 Gastro-esophageal reflux disease without esophagitis; Z85.3 Personal history of malignant neoplasm of breast; Z87.891 Personal history of nicotine dependence; I25.10 Atherosclerotic heart disease of native coronary artery without angina pectoris; Z79.01 Long term (current) use of anticoagulants
CPT/HCPCS: 49083; 71046; 80048; 80053; 81003; 81015; 82140; 82150; 83615; 83735; 83880; 83935; 84157; 84295; 84300; 84439; 84443; 85025; 85027; 85610; 85730; 87015; 87070; 87205; 88112; 88305; 88341; 88342; 89051; 93005; 94640; 99285; P9047

== ENCOUNTER → 2024-12-05 08:34 | Outpatient (REF) | payer MEDICARE, OTHER, SELFPAY ==
[2024-12-05 08:47] VITALS: BP_SYST 60
[2024-12-05 10:05] VITALS: BP 101/60; BP_SYST 60
[2024-12-05 11:23] LABS: Body Fluid Second Tech ASW
== END ==
LOC: RADI 08:34
PROVIDERS: ATTENDING PHYSICIAN Internal Medicine Gastroenterology; FAMILY PHYSICIAN Family Medicine
DX: R18.8 Other ascites (principal)
CPT/HCPCS: 49083; 89051

== ENCOUNTER → 2024-12-11 08:03 | Outpatient (REF) | payer MEDICARE, OTHER, SELFPAY ==
[2024-12-11 08:30] VITALS: BP 103/63; BP_SYST 60
[2024-12-11 09:39] VITALS: BP 95/56; BP_SYST 60
[2024-12-11 10:00] VITALS: BP 95/56
[2024-12-11 10:53] LABS: Body Fluid Second Tech AMA
== END ==
LOC: RADI 08:03
PROVIDERS: ATTENDING PHYSICIAN Internal Medicine Gastroenterology; FAMILY PHYSICIAN Family Medicine
DX: R18.8 Other ascites (principal)
CPT/HCPCS: 49083; 89051

== ENCOUNTER → 2024-12-18 09:21 | Outpatient (REF) | payer MEDICARE, OTHER, SELFPAY ==
[2024-12-18 09:50] VITALS: BP 115/61; BP_SYST 60
[2024-12-18 10:30] VITALS: BP 96/59; BP_SYST 60
[2024-12-18 10:40] VITALS: BP 100/58; BP_SYST 60
[2024-12-18 10:55] VITALS: BP 100/58
[2024-12-18 13:45] LABS: Body Fluid Second Tech ASW
== END ==
LOC: RADI 09:21
PROVIDERS: ATTENDING PHYSICIAN Internal Medicine Gastroenterology
DX: R18.8 Other ascites (principal)
CPT/HCPCS: 49083; 89051

== ENCOUNTER 2024-12-20 21:14 | Inpatient (IN) | payer MEDICARE, OTHER, SELFPAY ==
[2024-12-20] VITALS (8 sets, daily range): BP systolic 107–136; BP diastolic 60–70; BMI 19.7
[2024-12-20 15:50] LABS: Hematocrit 37.6 % (37.0-47.0); Hemoglobin 13.5 g/dL (12.0-16.0); Mean Corp Hgb Conc. 35.9 g/dL (33.0-37.0); Mean Corpuscular Volume 96.2 fL (81.0-99.0); Nucleated Red Blood Cells % 0 %; Platelet Count 159 10^3/uL (130-400); Red Cell Dist. Width 16.4 % (11.5-14.5)
[2024-12-20 15:56] LABS: INR 1.79; PT 21.3 Sec (11.4-14.6)
[2024-12-20 15:57] LABS: APTT 35.7 Sec (23.4-35.0)
[2024-12-20 16:06] LABS: ALT (SGPT) 80 U/L (0-35); AST (SGOT) 122 U/L (14-36); Albumin 3.0 g/dl (3.5-5.0); Alkaline Phosphatase 136 U/L (38-126); Blood Urea Nitrogen 40 mg/dl (7-17); Calcium 8.5 mg/dl (8.4-10.2); Carbon Dioxide 22 mmol/L (22-30); Chloride 94 mmol/L (98-107); Glucose 129 mg/dl (70-99); Potassium 5.0 mmol/L (3.5-5.1); Sodium 121 mmol/L (135-145); Total Protein 6.9 g/dl (6.3-8.2); eGFR 50.48
--- NOTE | 2024-12-20 18:45 | ED.GENMED ---
History of Present Illness
General
Chief Complaint: Weakness
Source: patient and family
Exam Limitations: none
Time Seen by Provider: 12/20/24 18:20
Nursing documentation reviewed up to this point in time: agreed with
History of Present Illness
History of Present Illness:
Patient to ED with complaint of increasing weakness. According to family, patient is seen here weekly for paracentesis. She had procedure on Wednesday and family states when she came home she was too weak to ambulate on own. SHe has been using a
walker with maximaum assist from family. They also report that there was no change in her abdomen size despite the removal of 2.5L on Wednesday. Patient denies fever/chlls, abdminal pain. States she feels like her Na is low, has had hyponatremia in
the past.
Past History
Past History
ED Past Medical History: CAD, Cancer (Breast), CHF and Hypothyroidism
ED Past Surgical History: Cardiac (AICD/pacemaker)
Social History
Tobacco: Non-smoker
Review of Systems
Review of Systems
Allergies reviewed?: Yes
All Other Systems: ROS reviewed and negative except as documented in HPI and ROS
Constitutional: Reports fatigue
EENT: Reports no symptoms
Respiratory: Reports no symptoms
Cardiac: Reports no symptoms
ABD/GI: Reports no symptoms
: Reports no symptoms
Musculoskeletal: Reports edema (+2BLE edema)
Skin: Reports no symptoms
Neurological: Reports weakness
Psychiatric: Reports no symptoms
Phy Exam
General Physical Exam
General Presentation: mild distress
General age: appears stated age
General Skin: warm and dry
General Habitus: normal
General Mental: alert
Cardiovascular Exam
Cardiovascular Exam: regular rate/rhythm
Pulmonary Exam
Pulmonary Exam: lungs clear and no respiratory distress
Gastrointestinal Exam
Gastrointestinal Exam: normal bowel sounds, non tender, soft, no organomegaly, no pulsatile mass, no cva tenderness and ascites
Neurological Exam
Neurological Exam: alert, oriented x3, CN II-XII intact, no motor deficits, no sensory deficits and speech normal
Musculoskeletal Exam
Musculoskeletal Exam: full ROM and edema (+2 edema BLE)
Skin Exam
Skin Exam: normal color, warm/dry and no rash
Psychiatric Exam
Psychiatric Exam: normal mood/affect
Course
Orders/Labs/Results
Orders:
Orders
12/20/24 Dinner
Cholesterol Lowering
Fluid Restriction: 1200 mL/day (40 oz)
12/20/24 15:24
ECG [Electrocardiogram (*1)] Urgent
Reason for Study: Fatigue / Weakness
EKG- Treatment ONCE
12/20/24 15:37
Complete Blood Count/With Diff Urgent
Comprehensive Metabolic Panel Urgent
NT-proBNP Urgent
PTT Urgent
Prothrombin Time Urgent
12/20/24 19:40
Osmolality, Random Urine Urgent
Date Specimen was Collected: 12/20/24
Time Specimen was Collected: 19:30
Urinalysis Reflex To Culture Urgent
Date Specimen was Collected: 12/20/24
Time Specimen was Collected: 19:33
Urine Microscopic Reflex Cult Urgent
Urine Sodium Urgent
Date Specimen was Collected: 12/20/24
Time Specimen was Collected: 19:30
Comment: ADD ON
Urine Culture Urgent
ALICIA Source: U
Specimen Description:
Date Specimen was Collected: 12/20/24
Time Specimen was Collected: 19:33
12/20/24 20:01
Consult Nephrology [NEPHROLOGY CONSULT] Urgent
Consulting Provider: Maciej Bass V.
Was physician already notified: Yes
12/20/24 20:12
Add On- LAB Routine
Tests Added?: urine sodium
12/20/24 20:38
Admit/Transfer Patient As Directed
Co-Sign Provider:
Level of Care: Inpatient admission
Assign to:: IMU- Intermediate Care
Physician / Group: Amie Sam
Diagnosis: symptomatic hyponatremia
Reason for Hospitalization: symptomatic hyponatremia
Expected length of stay greater than two midnights?: Yes
ELOS- Estimated Length of Stay in days: 3
I certify the patient meets the requirements for IP care: Yes
PRN Pain Medication Management As Directed
May give lesser potent ordered pain med per pt: Yes
preference::
Protocol:: Medication orders for pain may be administered in a
manner that supports deferring to patient preference
when the pt is:
- Requesting an ordered lesser potent pain medication.
Least to most potent pain medications are defined
as: acetaminophen < NSAID < tramadol < opioids
(morphine, oxycodone, hydromorphone).
- Requesting a lesser dose of the same medication IF
ORDERED.
- Requesting a less intrusive route of administration
if both routes are prescribed by the provider (PO <
IV).
12/20/24 20:40
Code Status As Directed
Resuscitation Status: Full Code
12/20/24 20:45
Apixaban [Eliquis] 2.5 mg PO NOW STA
12/20/24 21:00
3% Sodium Chloride 250 ml [Sodium Chloride 3%] 250 ml IV ONCE
12/20/24 21:14
Transfer Patient As Directed
Transfer to: Telemetry
Reason for Telemetry: Pulmonary Edema
Date to Stop Telemetry: 12/23/24
Time to Stop Telemetry: 11:00
12/20/24 21:27
Acetaminophen [Tylenol] 650 mg PO Q4HPRN PRN
Bisacodyl [Dulcolax] 10 mg RECTAL [id number] PRN
Carvedilol [Coreg] 25 mg PO BID
Docusate W/Senna [Senokot-S] 1 tablet PO BIDPRN PRN
Polyethylene Glycol Powder [Miralax] 17 grams PO DAILYPRN PRN
Weight DAILY
Frequency: Daily
12/20/24 21:27
Activity As Directed
Activity Level: As Tolerated
Nursing to Place Non Medication Order As Directed
Physician Order: please update overnight provider with overnight sodium levels
Vital Signs As Directed
Frequency: Per unit guidelines
Pt Eval And Treat Routine
Activity Level: As Tolerated
12/20/24 22:00
Latanoprost [Xalatan Ophthalmic Solution] See Dose Instructions LEFT EYE HS
12/21/24 00:30
Sodium Q4H
12/21/24 04:30
Sodium Q4H
12/21/24 06:00
Basic Metabolic Panel IN AM
Complete Blood Count/With Diff IN AM
Xpezx-Kdmg-Jzdgvrv IN AM
Magnesium IN AM
Levothyroxine [Synthroid] 100 mcg PO DAILY @ 0600
12/21/24 08:00
Amiodarone [Pacerone] 200 mg PO DAILY
Apixaban [Eliquis] 2.5 mg PO BID
FLUTICASONE PROPIONATE 110 mcg [Flovent 110 Mcg Inhaler] 2 puff INH R BID
12/21/24 08:30
Sodium Q4H
12/21/24 12:30
Sodium Q4H
12/21/24 16:30
Sodium Q4H
12/21/24 17:00
Pantoprazole [Protonix] 40 mg PO Q48H
12/21/24 18:00
Rosuvastatin Calcium [Crestor] 5 mg PO QPM
12/23/24 11:00
DC Protocol for Telemetry ONCE
Abnormal Lab Results
12/20/24 12/20/24
15:37 19:40
WBC 11.0 H 10^3/uL
(4.8-10.8)
RBC 3.91 L 10^6/uL
(4.20-5.40)
MCH 34.5 H pg
(27.0-31.0)
RDW 16.4 H %
(11.5-14.5)
Abs Immat Gran (auto) 0.2 H 10^3/uL
(0-0.05)
Absolute Neuts (auto) 8.5 H 10^3/uL
(1.4-6.5)
Absolute Lymphs (auto) 0.9 L 10^3/uL
(1.2-3.4)
Absolute Monos (auto) 1.3 H 10^3/uL
(0.1-0.6)
Immature Gran % 1.5 H %
(0-0.5)
Neutrophils % 77.4 H %
(42.2-75.2)
Lymphocytes % 8.1 L %
(20.5-51.1)
Monocytes % 12.2 H %
(1.7-9.3)
PT 21.3 H Sec
(11.4-14.6)
APTT 35.7 H Sec
(23.4-35.0)
Sodium 121 L mmol/L
(135-145)
Chloride 94 L mmol/L
(98-107)
BUN 40 H mg/dl
(7-17)
Creatinine 1.1 H mg/dL
(0.6-1.0)
Glucose 129 H mg/dl
(70-99)
Total Bilirubin 1.4 H mg/dl
(0.2-1.3)
AST 122 H U/L
(14-36)
ALT 80 H U/L
(0-35)
Alkaline Phosphatase 136 H U/L
(38-126)
Albumin 3.0 L g/dl
(3.5-5.0)
Ur Occult Blood Reflex 3+ A
(Negative)
Leukocyte Esterase Rfl 1+ A
(Negative)
Urine RBC 3-6 A /HPF
(0-2)
Urine Bacteria (Reflex) Many A
(Negative)
Urine Sodium < 5 L mmol/L
(30-90)
Urine Albumin (Reflex) 3+ A
(Neg - Trace)
12/20/24 15:37
12/20/24 15:37
Vital Signs
Initial and Last Documented VS:
Initial Vital Signs
Temp Pulse Resp BP Pulse Ox
97.4 F 61 18 107/70 99
12/20/24 15:20 12/20/24 15:20 12/20/24 15:20 12/20/24 15:20 12/20/24 15:20
Last Documented Vital Signs
Temp Pulse Resp BP Pulse Ox
97.4 F 60 20 121/67 99
12/20/24 15:20 12/20/24 20:30 12/20/24 20:30 12/20/24 20:00 12/20/24 20:30
*Pulse Oximetry
SaO2: 100
Oxygen Mode of Delivery: Room air
Patient hypoxic: no
*Critical Care Note
Total Time (30-74mins, 75-104mins- exclusive of procedures): Not Applicable
Update Note
Update Note:
Patient to ED with complaint of weakness. Symptoms started on Wednesday after paracentesis and continues to worsen. Na today 121. History of hyponatemia, typically runs 128-131. No diuretic use, reports compliance with fluid restriction.
Kali notified via tiger text. Will begin 3%NS at 20cc/hr. Patient to be admitted to hospitalist service.
ED Attending Note
-
Portions of this chart may have been created with voice recognition software.� Occasional wrong word or��sound alike� substitutions may have occurred due to the inherent limitations of voice recognition software.
Discharge Plan
Departure
Patient Disposition: Admit
Date of Disposition: 12/20/24
Time of Disposition: 19:17
Presentation/result/management discussed w/ accepting MD/DO: Hospitalist
Patient with high blood pressure during this ER visit?: No
Condition: Fair
Covid-19: Not Applicable
Discharge Problem:
Acute hyponatremia, Weakness
Interventions
Interventions:
*Risk Screen - Suicide Last Done: 12/20/24 15:20
*General Assessment Last Done: 12/20/24 15:20
ED- Cardiac Assessment Last Done: 12/20/24 18:17
ED- Neurological Assessment Last Done: 12/20/24 18:17
ED- Pulmonary Assessment Last Done: 12/20/24 18:17
[2024-12-20 19:50] LABS: Urine Character Clear (Clear)
[2024-12-20 19:55] LABS: Urine Squamous Cell 0-2 /LPF (Few)
--- NOTE | 2024-12-20 20:06 | HPS.HSE ---
Family Physician
-
Family Physician: Ugo Kendall
Chief Complaint
-
weakness
History of Present Illness
Ms. Beckie Santos is a 79 yo woman with hx alcoholic cirrhosis with ascites (receives weekly paracentesis), breast cancer, hypothyroidism, ischemic cardiomyopathy with recovered EF, recent admission 11/28-12/01 for hyponatremia and YEISON (spironolactone and
Lasix held on DC) presents to the ER with weakness.
History obtained by patient and family at bedside. She has had increasing weakness since last paracentesis on Wednesday. She feels like she can't walk. Similar to prior episodes when sodium was low. She denies chest pain or shortness of breath.
No nausea/vomiting/diarrhea. No abdominal pain.
Medical History
Past Medical History
Past Medical History: Reports Other
Additional Past Medical History:
Congestive Heart Failure with Recovered EF
Cardiomyopathy s/p ICD
Paroxysmal Atrial Fibrillation
Alcoholic Cirrhosis
Asthma
Hyperlipidemia
Hypothyroidism
Depression
GERD
Left Breast Cancer s/p Lumpectomy
Past Surgical History: Reports Other
Additional Past Surgical History:
Left Breast Lumpectomy
Pacemaker/Defibrillator
Bilateral Cataracts
Social History
Tobacco: Former Smoker (Quit about 40 years ago)
Alcohol: Former (Sober since 2019)
Family History
Family History: Not pertinent
Allergies / Home Medications
Allergies reflects when Allergies were last updated in [facility].
Home Medications with original date entered in [employer]
Allergy/Medication List:
Allergies
Allergy/AdvReac Type Severity Reaction Status Date / Time
adhesive Allergy REDNESS Verified 12/20/24 15:22
Home Medications
levothyroxine 100 mcg tablet 100 mcg PO DAILY Thyroid 11/16/19
rosuvastatin 5 mg tablet 5 mg PO QPM High cholesterol 11/16/19
Bcaa Capsules 2 cap PO NOON Supplement 11/28/24
amiodarone 200 mg tablet 200 mg PO DAILY Heart Disease/Condition 11/28/24
fluticasone furoate 200 mcg/actuation blister powder for inhalation (Arnuity Ellipta) 1 inh inhalation R DAILY Lung/Breathing Issues 11/28/24
latanoprost 0.005 % eye drops 1 drp LEFT EYE HS Eye Condition 11/28/24
pantoprazole 40 mg tablet,delayed release 40 mg PO Q48H@1700 Gastrointestinal Issue 11/28/24
apixaban 2.5 mg tablet (Eliquis) 2.5 mg PO BID 12/20/24
carvedilol 25 mg tablet 25 mg PO BID 12/20/24
fluticasone propionate 50 mcg/actuation nasal spray,suspension 2 spray intranasal HS 12/20/24
ondansetron HCl 4 mg tablet 4 mg PO Q8HPRN PRN nausea/vomiting 12/20/24
Review of Systems
-
History Source: Patient
A 12 point ROS was completed and negative except as noted: Yes
Physical Exam
Vital Signs
Vital Signs
Temp Pulse Resp BP Pulse Ox
97.4 F 60 20 136/68 100
12/20/24 15:20 12/20/24 18:15 12/20/24 18:15 12/20/24 18:09 12/20/24 18:45
Physical Exam
General: No Apparent Distress and Appears Chronically Ill
HEENT: PERRLA
Respiratory: No Wheezes
Cardiac: S1/S2, Regular Rhythm, Peripheral Edema and JVD
GI: Non Tender and Other (distended )
Musculoskeletal: Edema, Left Lower Extremity and Edema, Right Lower Extremity
Skin: Warm and Dry; No Rash
Neuro: AO x 3
Psych: Calm
Laboratory Results
-
12/20/24 15:37
12/20/24 15:37
Laboratory Results
PT 21.3 Sec (11.4-14.6) H 12/20/24 15:37
INR 1.79 12/20/24 15:37
APTT 35.7 Sec (23.4-35.0) H 12/20/24 15:37
Total Bilirubin 1.4 mg/dl (0.2-1.3) H 12/20/24 15:37
AST 122 U/L (14-36) H 12/20/24 15:37
ALT 80 U/L (0-35) H 12/20/24 15:37
Alkaline Phosphatase 136 U/L (38-126) H 12/20/24 15:37
Data Reviewed
-
Diagnostic Radiology: Report Reviewed by me
Lab Data: Labs Reviewed by me
Impression/Plan
-
Ms. Beckie Santos is a 79 yo woman with hx alcoholic cirrhosis with ascites (receives weekly paracentesis), breast cancer, hypothyroidism, ischemic cardiomyopathy with recovered EF, recent admission 11/28-12/01 for hyponatremia and YEISON (spironolactone and
Lasix held on DC) presents to the ER with weakness.
Triage VS: T 97.4, P 61, RR 18, BP 107/70, SpO2 99%
LABS: WBC 11, Hg 13.5, PLT 159, Na 121, K+ 5., Cl 94, Cr 1.1, Glucose 129
Symptomatic Hyponatremia
-3% saline ordered
-admit to IMU
-trend Na q 4H with goal Na 129-131 tomorrow evening
-discussed plan with Nephrology. JVP seen on exam, patient denies shortness of breath. Low threshold to give IV lasix if patient becomes short of breath overnight. Patient may need IV lasix later in hospital course
-1200cc FWR
-daily weights
Alcoholic Cirrhosis with Ascites
-s/p paracentesis with 2.5L removal on Wednesday
-patient's diuretics Lasix and Spironolactone were stopped last admission
Hypothyroidism
-DEPARTMENTAL SHIPPING CLERK Synthroid
Ischemic Cardiomyopathy with recovered EF
-DEPARTMENTAL SHIPPING CLERK Coreg
-follow up renal recs on diuresis tomorrow
Paroxysmal Atrial Fibrillation
-DEPARTMENTAL SHIPPING CLERK Eliquis, Coreg
GERD - DEPARTMENTAL SHIPPING CLERK PPI
HLD - DEPARTMENTAL SHIPPING CLERK STatin
DVT PPx - Eliquis
FULL CODE
76 minutes spent on patient care
[2024-12-20] MEDS: SODIUM CHLORIDE 3% 250 IV (20:21)
[2024-12-20] MEDS: ELIQUIS 2.5 MG PO (21:31)
[2024-12-20] MEDS: COREG 25 MG PO (22:43)
[2024-12-20] MEDS: XALATAN OPHTHALMIC SOLUTION 1 DROP LEFT EYE (22:44)
[2024-12-21] VITALS (15 sets, daily range): BP systolic 81–125; BP diastolic 46–66; PULSE 60; BMI 19.2
[2024-12-21 00:42] LABS: Sodium 121 mmol/L (135-145)
[2024-12-21 06:54] LABS: Hematocrit 34.5 % (37.0-47.0); Hemoglobin 13.0 g/dL (12.0-16.0); Mean Corp Hgb Conc. 37.7 g/dL (33.0-37.0); Mean Corpuscular Volume 92.2 fL (81.0-99.0); Nucleated Red Blood Cells % 0 %; Platelet Count 160 10^3/uL (130-400); Red Cell Dist. Width 15.9 % (11.5-14.5)
[2024-12-21 07:13] LABS: ALT (SGPT) 79 U/L (0-35); AST (SGOT) 119 U/L (14-36); Albumin 2.8 g/dl (3.5-5.0); Alkaline Phosphatase 112 U/L (38-126); Blood Urea Nitrogen 37 mg/dl (7-17); Calcium 8.2 mg/dl (8.4-10.2); Carbon Dioxide 20 mmol/L (22-30); Chloride 101 mmol/L (98-107); Estimated Creatinine Clearance 32 ml/min; Glucose 74 mg/dl (70-99); Magnesium 2.3 mg/dl (1.6-2.3); Potassium 5.5 mmol/L (3.5-5.1); Sodium 124 mmol/L (135-145); Total Protein 6.5 g/dl (6.3-8.2); eGFR 56.60
[2024-12-21] MEDS: FLOVENT 110 MCG INHALER 2 PUFF INH ×2 (07:42→19:24)
--- NOTE | 2024-12-21 08:22 | VNURNOTE ---
Chart reviewed. Patient is current with [facility]. Will continue to follow hospital course and DC plans.
[2024-12-21] MEDS: ELIQUIS 2.5 MG PO ×2 (08:41→20:36)
[2024-12-21] MEDS: PACERONE 200 MG PO (08:41)
[2024-12-21] MEDS: COREG 25 MG PO (08:45)
[2024-12-21] MEDS: SYNTHROID 100 MCG PO (08:46)
[2024-12-21 09:21] LABS: Sodium 125 mmol/L (135-145)
--- NOTE | 2024-12-21 10:17 | W.PN.HOSP.TC ---
Today's Communication/Plan
-
follow labs
PT evaluation
Assessment / Plan
Assessment / Plan
Ms. Beckie Santos is a 79 yo woman with hx alcoholic cirrhosis with ascites (receives weekly paracentesis, follows with Dr. Whyte of GI at [facility]), breast cancer, hypothyroidism, ischemic cardiomyopathy with recovered EF, recent admission 11/28-12/01 for
hyponatremia and YEISON (spironolactone and Lasix held on DC) presents to the ER with weakness.
Triage VS: T 97.4, P 61, RR 18, BP 107/70, SpO2 99%
LABS: WBC 11, Hg 13.5, PLT 159, Na 121, K+ 5., Cl 94, Cr 1.1, Glucose 129
Symptomatic Hyponatremia
-3% saline ordered
-admit to IMU
-trend Na q 4H
Na 121-->124-->125
-appreciate input from Nephrology. JVP seen on exam, patient denies shortness of breath. Low threshold to give IV lasix if patient becomes short of breath overnight. Patient may need IV lasix later in hospital course
-1200cc FWR
-daily weights
Alcoholic Cirrhosis with Ascites
-s/p paracentesis with 2.5L removal on Monday 12/18
-patient's diuretics Lasix and Spironolactone were stopped last admission
Hypothyroidism
-WASHER MACHINE Synthroid
Ambulatory dysfunction due to hyponatremia
Physical Therapy in consult
Ischemic Cardiomyopathy with recovered EF
-WASHER MACHINE Coreg
-follow up renal recs on diuresis tomorrow
Paroxysmal Atrial Fibrillation
-WASHER MACHINE Eliquis, Coreg, Amiodarone
GERD - WASHER MACHINE PPI
Hx Left Breast Cancer s/p Lumpectomy
HLD - WASHER MACHINE STatin
DVT PPx - Eliquis
FULL CODE
Anticipated Discharge: 24 - 48 hours
Subjective/Interval History
-
Date of Service: December 21, 2024
Generally feels better since arriving, now most concerned about getting lunch
Objective Data
-
Labs:
Laboratory Results
12/21/24 12/21/24 12/21/24
00:15 04:30 06:30
WBC 11.9 H
Hgb 13.0
Hct 34.5 L
Plt Count 160
Sodium 121 L Cancelled 124 L
Potassium 5.5 H
Chloride 101
Carbon Dioxide 20 L
BUN 37 H
Creatinine 1.0
Glucose 74
Calcium 8.2 L
Total Bilirubin 1.6 H
AST 119 H
ALT 79 H
Alkaline Phosphatase 112
12/21/24 12/21/24 12/21/24
08:57 12:30 16:30
WBC
Hgb
Hct
Plt Count
Sodium 125 L Pending Pending
Potassium
Chloride
Carbon Dioxide
BUN
Creatinine
Glucose
Calcium
Total Bilirubin
AST
ALT
Alkaline Phosphatase
Vital Signs:
Vital Signs
Temp Pulse Resp BP Pulse Ox
98.9 F 60 14 97/66 98
12/21/24 08:58 12/21/24 08:58 12/21/24 08:58 12/21/24 08:58 12/21/24 08:58
Review of Systems
-
History Source: Patient and Coordinated Provider
Constitutional: Denies Fever
Respiratory: Reports No Symptoms; Denies Cough or Trouble Breathing
Cardiac: Reports No Symptoms; Denies Chest Pain
Genitourinary: Reports No Symptoms; Denies Dysuria
Musculoskeletal: Reports Edema
Physical Exam
-
General: Well Developed, Well Nourished and No Apparent Distress
HEENT: Normocephalic, Atraumatic and Moist Mucous Membranes
Respiratory: Clear to Auscultation; Negative Wheezes, Rales or Rhonchi
Cardiac: Regular Rhythm and S1/S2
GI: Soft, Nontender, Nondistended and Normal Bowel Sounds; Negative Distended
Musculoskeletal: No Clubbing, No Cyanosis, Edema, Right Lower Extrem (3+) and Edema, Left Lower Extrem (3+)
Neuro: Awake, Alert and Oriented
--- NOTE | 2024-12-21 12:12 | CM ---
Patient seen at bedside in ED. Patient son also present and confirmed discharge plan; home with VN. Patient stated that she lives in a 2 story home with a new walker and [facility] is following with PT and nursing. CM will ask [facility] to assess. Patient has
no home O2 at this time. Patient PCP is Dr. Kendall and she uses the [facility] on [address] in [place]. CM will continue to follow for discharge planning needs.
Plan; home with [facility] and family supports.
[2024-12-21 13:10] LABS: Sodium 124 mmol/L (135-145)
--- NOTE | 2024-12-21 13:41 | W.CON.NEPH ---
Consultation
-
Date/Time Consultation Requested: 12/21/2024 7:30 AM
Date/Time Consultation Performed: 12/01/2024 145 PM
Requesting Provider: Dr. Ibrahim
Performing Provider: Dr. Bass
Reason for Consultation: Hyponatremia
Medical History
-
Chief Complaint: YEISON, hyponatremia, hypotension
History of Present Illness:
This is an 79-year-old female who has alcoholic cirrhosis followed by [facility] gastroenterology hepatology. She has paroxysmal atrial fibrillation on Eliquis therapy and rate control with beta-garland therapy. She also is on
amiodarone. She has hyperlipidemia on statin therapy. She does report that she has chronically lower blood pressures typically in the 90 systolic range. The patient did undergo recent paracentesis this past Wednesday for approximately 2 liter.
During her last admission in early November her Aldactone and Lasix were discontinued following nephrology consultation for acute renal failure hypotension and hyponatremia. she had arecent admission 11/28-12/01 for hyponatremia and YEISON (spironolactone and
Lasix held on DC) presents to the ER with weakness. She has had increasing weakness since last paracentesis on Wednesday. She feels like she can't walk. She denies chest pain or shortness of breath. No nausea/vomiting/diarrhea. No abdominal
pain. On presentation to the hospital she was hyponatremic with a serum sodium of 121. Hypertonic saline was administered overnight at my direction. Her creatinine was at 1.1. The patient has been hypotensive. Nephrology was consulted for
symptomatic hyponatremia management. Of note her weight was 45.7 less than her discharge weight on of 46.5kg
Past Medical History
Congestive Heart Failure with Recovered EF
Paroxysmal Atrial Fibrillation
Alcoholic Cirrhosis
Asthma
Hyperlipidemia
Hypothyroidism
Depression
GERD
Left Breast Cancer s/p Lumpectomy
Pacemaker/Defibrillator
Bilateral Cataracts
Social History
Tobacco: Former Smoker
Alcohol: Former
Drug: None
Family History
Family History: Not Pertinent
Allergies / Home Medications
Allergy/AdvReac Type Severity Reaction Status Date / Time
adhesive Allergy REDNESS Verified 12/20/24 15:22
�Medication �Instructions �Recorded �Confirmed �Type
levothyroxine 100 mcg tablet 100 mcg PO DAILY Thyroid 11/16/19 12/20/24 History
rosuvastatin 5 mg tablet 5 mg PO QPM High cholesterol 11/16/19 12/20/24 History
Bcaa Capsules 2 cap PO NOON Supplement 11/28/24 12/20/24 History
amiodarone 200 mg tablet 200 mg PO DAILY Heart 11/28/24 12/20/24 History
Disease/Condition
fluticasone furoate 200 1 inh inhalation R DAILY 11/28/24 12/20/24 History
mcg/actuation blister powder for Lung/Breathing Issues
inhalation (Arnuity Ellipta)
latanoprost 0.005 % eye drops 1 drp LEFT EYE HS Eye Condition 11/28/24 12/20/24 History
pantoprazole 40 mg tablet,delayed 40 mg PO Q48H@1700 11/28/24 12/20/24 History
release Gastrointestinal Issue
apixaban 2.5 mg tablet (Eliquis) 2.5 mg PO BID 12/20/24 12/20/24 History
carvedilol 25 mg tablet 25 mg PO BID 12/20/24 12/20/24 History
fluticasone propionate 50 2 spray intranasal HS 12/20/24 12/20/24 History
mcg/actuation nasal
spray,suspension
ondansetron HCl 4 mg tablet 4 mg PO Q8HPRN PRN nausea/vomiting 12/20/24 12/20/24 History
Review of Systems
-
History Source: Patient
All other systems: Negative unless noted
Constitutional: Other (weakness)
Cardiac: Other (Pacemaker device)
: No Symptoms
Musculoskeletal: Edema
Physical Exam
Vital Signs
Vital Signs
Temp Pulse Resp BP Pulse Ox
98.0 F 60 18 88/56 98
12/21/24 11:48 12/21/24 11:48 12/21/24 11:48 12/21/24 11:48 12/21/24 11:48
Lab Results
12/21/24 06:30
WBC 11.9 10^3/uL (4.8-10.8) H 12/21/24 06:30
RBC 3.74 10^6/uL (4.20-5.40) L 12/21/24 06:30
Hgb 13.0 g/dL (12.0-16.0) 12/21/24 06:30
Hct 34.5 % (37.0-47.0) L 12/21/24 06:30
Plt Count 160 10^3/uL (130-400) 12/21/24 06:30
Potassium 5.5 mmol/L (3.5-5.1) H 12/21/24 06:30
Chloride 101 mmol/L (98-107) 12/21/24 06:30
Carbon Dioxide 20 mmol/L (22-30) L 12/21/24 06:30
BUN 37 mg/dl (7-17) H 12/21/24 06:30
Creatinine 1.0 mg/dL (0.6-1.0) 12/21/24 06:30
eGFR 56.60 12/21/24 06:30
Glucose 74 mg/dl (70-99) 12/21/24 06:30
Calcium 8.2 mg/dl (8.4-10.2) L 12/21/24 06:30
Vjn-X-Qsclwjtdqce Pept 413 pg/ml 12/20/24 15:37
Albumin 2.8 g/dl (3.5-5.0) L 12/21/24 06:30
Physical Exam
General: AOx3, Nontoxic , NAD, chronically ill appearing
HEENT: PERRL, EOMI, Anicteric, Conjunctivae Clear, Ear/Nose Intact, Hearing Normal, Oropharynx Clear/Moist, Dentition Intact, Facial Symmetry, Neck Supple, Neck: Trachea Midline, No JVD and No Thyromegaly, no Bruits
Respiratory: Clear to auscultation bilaterally with normal lung exersion
Cardiac: S1/S2 and Regular Rate/Rhythm (pacer)
Breast: Deferred by me
Abdomen: Soft, Nontender, distended, Normal Bowel Sounds and No Hepatosplenomegaly
Rectal: Deferred by Provider
Genito-urinary: No Costovertebral Tenderness
Extremities: No Clubbing, No Cyanosis and trace pretibial Edema
Skin: No Rash or open lesions
Neuro: Nonfocal/Grossly Intact, CN II-XII (Intact) and Strength (Musculoskeletal exam 5 out of 5 both upper and lower extremities)
Hematologic/Lymphatic: No Cervical Lymphadenopathy, No Submandibular Lymphadenopathy and No Supraclavicular Lymphadenopathy
Psych: Mood/afflect pleasant, Insight/judgement good and Appropriate
Vascular: plus 1 pedal and radial pulses
Data Reviewed
-
Medical Tests (Nuc Med, Echo etc): Other (EKG report reviewed shows an AV paced rhythm at 60 bpm per personal review of report)
Labs: Labs Reviewed by me ([facility] CBC urine studies)
Old Records: Reviewed (Reviewed previous nephrology consultation from date November 28, 2024 for acute renal failure)
Assessment/Plan
-
Impression:
Hyponatremia
Etoh Cirrhosis
Ascites
Paroxysmal atrial fibrillation
Hypothyroid
History of left breast cancer with lumpectomy
Hypotension
Hypoalbuminemia 2.8
Plan:
Hyponatremia:
- Likely a function of compromised effective circulating volume in the setting of end-stage liver disease
-Urine sodium of less than 5 consistent with compromised effective circulating volume
-Urine osmolality of 735 Notes excess ADH
-I would provide IV albumin support as well as midodrine to increase mean arterial perfusion pressures continue to be low
-Maintain fluid restriction for hyponatremia
-I will provide another round of hypertonic saline for ongoing hyponatremia and to support blood pressure
-As needed midodrine provided
[2024-12-21] MEDS: SODIUM CHLORIDE 3% 250 IV (14:58)
[2024-12-21] MEDS: CRESTOR 5 MG PO (17:00)
[2024-12-21] MEDS: PROTONIX 40 MG PO (17:00)
[2024-12-21 17:17] LABS: Sodium 124 mmol/L (135-145)
[2024-12-21] MEDS: COREG PO (20:35)
[2024-12-21] MEDS: XALATAN OPHTHALMIC SOLUTION 1 DROP LEFT EYE (20:36)
[2024-12-22] VITALS (7 sets, daily range): BP systolic 95–121; BP diastolic 50–62; PULSE 60; O2SAT 98; BMI 20.1
--- NOTE | 2024-12-22 03:08 | PTCARENOTE ---
IV continuous 3% sodium stopped, per orders to discontinue.
[2024-12-22] MEDS: SYNTHROID 100 MCG PO (05:16)
[2024-12-22] MEDS: FLOVENT 110 MCG INHALER 2 PUFF INH ×2 (07:26→19:35)
[2024-12-22] MEDS: PACERONE 200 MG PO (07:50)
[2024-12-22] MEDS: ELIQUIS 2.5 MG PO ×2 (07:50→21:19)
[2024-12-22] MEDS: COREG PO (08:04)
[2024-12-22 08:48] LABS: Hematocrit 34.6 % (37.0-47.0); Hemoglobin 12.6 g/dL (12.0-16.0); Mean Corp Hgb Conc. 36.4 g/dL (33.0-37.0); Mean Corpuscular Volume 94.0 fL (81.0-99.0); Nucleated Red Blood Cells % 0 %; Platelet Count 162 10^3/uL (130-400); Red Cell Dist. Width 16.4 % (11.5-14.5)
[2024-12-22 09:21] LABS: Blood Urea Nitrogen 38 mg/dl (7-17); Calcium 8.2 mg/dl (8.4-10.2); Carbon Dioxide 20 mmol/L (22-30); Chloride 103 mmol/L (98-107); Estimated Creatinine Clearance 29 ml/min; Glucose 67 mg/dl (70-99); Potassium 4.9 mmol/L (3.5-5.1); Sodium 126 mmol/L (135-145); eGFR 50.48
--- NOTE | 2024-12-22 12:48 | W.PN.HOSP.TC ---
Today's Communication/Plan
-
Will defer to nephrology whether Samsca should be considered
Assessment / Plan
Assessment / Plan
Ms. Beckie Santos is a 79 yo woman with hx alcoholic cirrhosis with ascites (receives weekly paracentesis, follows with Dr. Whyte of GI at [facility]), breast cancer, hypothyroidism, ischemic cardiomyopathy with recovered EF, recent admission 11/28-12/01 for
hyponatremia and YEISON (spironolactone and Lasix held on DC) presents to the ER with weakness.
Triage VS: T 97.4, P 61, RR 18, BP 107/70, SpO2 99%
LABS: WBC 11, Hg 13.5, PLT 159, Na 121, K+ 5., Cl 94, Cr 1.1, Glucose 129
Symptomatic Hyponatremia
-3% saline ordered
-admitted to tele
-trend Na
Na 121-->124-->125-->124-->126
-appreciate input from Nephrology. JVP seen on exam, patient denies shortness of breath. Low threshold to give IV lasix if patient becomes short of breath overnight. Patient may need IV lasix later in hospital course
-1200cc FWR
-daily weights 46.72kg
reviewed with nephrology
Alcoholic Cirrhosis with Ascites
-s/p paracentesis with 2.5L removal on Monday 12/18
-patient's diuretics Lasix and Spironolactone were stopped last admission
Hypothyroidism
-HANDBAG OPERATOR Synthroid
Ambulatory dysfunction due to hyponatremia
Physical Therapy in consult
Ischemic Cardiomyopathy with recovered EF
-HANDBAG OPERATOR Coreg
-follow up renal recs on diuresis tomorrow
Paroxysmal Atrial Fibrillation
-HANDBAG OPERATOR Eliquis, Coreg, Amiodarone
GERD - HANDBAG OPERATOR PPI
Hx Left Breast Cancer s/p Lumpectomy
HLD - HANDBAG OPERATOR STatin
DVT PPx - Eliquis
FULL CODE
Anticipated Discharge: 24 - 48 hours
Subjective/Interval History
-
Date of Service: December 22, 2024
Concerned about her scheduled paracentesis for Wednesday
Objective Data
-
Labs:
Laboratory Results
12/22/24
06:51
WBC 10.7
Hgb 12.6
Hct 34.6 L
Plt Count 162
Sodium 126 L
Potassium 4.9
Chloride 103
Carbon Dioxide 20 L
BUN 38 H
Creatinine 1.1 H
Glucose 67 L
Calcium 8.2 L
Vital Signs:
Vital Signs
Temp Pulse Resp BP Pulse Ox
97.7 F 61 18 96/52 99
12/22/24 11:31 12/22/24 11:31 12/22/24 11:31 12/22/24 11:31 12/22/24 11:31
I&O
12/21/24 12/22/24 12/23/24
06:59 06:59 06:59
Intake Total 480 / 480
Balance 480 / 480
Review of Systems
-
History Source: Patient and Coordinated Provider
Constitutional: Denies Fever
Respiratory: Reports No Symptoms; Denies Cough or Trouble Breathing
Cardiac: Reports No Symptoms; Denies Chest Pain
Genitourinary: Reports No Symptoms; Denies Dysuria
Musculoskeletal: Reports Edema
Physical Exam
-
General: Well Developed, Well Nourished and No Apparent Distress
HEENT: Normocephalic, Atraumatic and Moist Mucous Membranes
Respiratory: Clear to Auscultation; Negative Wheezes, Rales or Rhonchi
Cardiac: Regular Rhythm and S1/S2
GI: Soft, Nontender, Nondistended and Normal Bowel Sounds; Negative Distended
Musculoskeletal: No Clubbing, No Cyanosis, Edema, Right Lower Extrem (2+) and Edema, Left Lower Extrem (2+)
Neuro: Awake, Alert and Oriented
--- NOTE | 2024-12-22 13:25 | W.PN.NEPH.PH ---
Today's Communication / Plan
-
Samsca x 1
Assessment/Plan
-
Impression:
Hyponatremia
Etoh Cirrhosis
Ascites
Paroxysmal atrial fibrillation
Hypothyroid
History of left breast cancer with lumpectomy
Hypotension
Hypoalbuminemia 2.8
Plan:
Hyponatremia:
- Likely a function of compromised effective circulating volume in the setting of end-stage liver disease
-Urine sodium of less than 5 consistent with compromised effective circulating volume
-Urine osmolality of 735 Notes excess ADH
-Maintain fluid restriction for hyponatremia
-As needed midodrine provided
I will give 1 dose of Samsca today
-
-
Date of Service: December 22, 2024
CC / HPI / ROS
-
Chief Complaint:
Hyponatremia
History of Present Illness:
Presents with low sodium and hypotension with ESLD
Review of Systems:
No chest pain or shortness of breath
Labs
-
Labs:
WBC 10.7 10^3/uL (4.8-10.8) 12/22/24 06:51
RBC 3.68 10^6/uL (4.20-5.40) L 12/22/24 06:51
Hgb 12.6 g/dL (12.0-16.0) 12/22/24 06:51
Hct 34.6 % (37.0-47.0) L 12/22/24 06:51
Plt Count 162 10^3/uL (130-400) 12/22/24 06:51
Sodium 126 mmol/L (135-145) L 12/22/24 06:51
Potassium 4.9 mmol/L (3.5-5.1) 12/22/24 06:51
Chloride 103 mmol/L (98-107) 12/22/24 06:51
Carbon Dioxide 20 mmol/L (22-30) L 12/22/24 06:51
BUN 38 mg/dl (7-17) H 12/22/24 06:51
Creatinine 1.1 mg/dL (0.6-1.0) H 12/22/24 06:51
eGFR 50.48 12/22/24 06:51
Glucose 67 mg/dl (70-99) L 12/22/24 06:51
Calcium 8.2 mg/dl (8.4-10.2) L 12/22/24 06:51
Smj-K-Jpeqxpkxihd Pept 413 pg/ml 12/20/24 15:37
Albumin 2.8 g/dl (3.5-5.0) L 12/21/24 06:30
Physical Exam
-
Vital Signs:
Vital Signs
Temp Pulse Resp BP Pulse Ox
97.7 F 61 18 96/52 99
12/22/24 11:31 12/22/24 11:31 12/22/24 11:31 12/22/24 11:31 12/22/24 11:31
Cardiovascular:: Regular rate and rhythm
Respiratory:: Bilateral: CTA
Lung Excursion:: Normal
Abdomen:: Distended, Nontender and Soft
Bowel Sounds:: Normal
Extremity Edema:: None: Bilateral:
[2024-12-22] MEDS: SAMSCA 15 MG PO (14:08)
--- NOTE | 2024-12-22 15:40 | CM ---
Addendum entered by Alison Jackson 12/22/24 16:18:
Referrals to {[facility], [facility] and [facility].
Plan: SNF . Prefers wheelchair van for transport
Original Note:
Pt seen at bedside. PT recommends SNF. Pt #1 choice is [facility]. Would also like referrals to [facility] and [facility]. Transportation preference is wheelchair van.
[2024-12-22] MEDS: CRESTOR 5 MG PO (17:19)
[2024-12-22] MEDS: COREG 25 MG PO (21:19)
[2024-12-22] MEDS: XALATAN OPHTHALMIC SOLUTION 1 DROP LEFT EYE (21:19)
[2024-12-23] VITALS (7 sets, daily range): BP systolic 92–145; BP diastolic 43–76; BMI 19.7
[2024-12-23] MEDS: SYNTHROID 100 MCG PO (06:12)
[2024-12-23] MEDS: FLOVENT 110 MCG INHALER 2 PUFF INH ×2 (07:30→19:57)
[2024-12-23] MEDS: PACERONE 200 MG PO (08:38)
[2024-12-23] MEDS: ELIQUIS 2.5 MG PO ×2 (08:38→21:02)
[2024-12-23 09:25] LABS: Hematocrit 35.5 % (37.0-47.0); Hemoglobin 13.1 g/dL (12.0-16.0); Mean Corp Hgb Conc. 36.9 g/dL (33.0-37.0); Mean Corpuscular Volume 93.7 fL (81.0-99.0); Nucleated Red Blood Cells % 0 %; Platelet Count 149 10^3/uL (130-400); Red Cell Dist. Width 16.4 % (11.5-14.5)
[2024-12-23] MEDS: COREG PO (09:28)
[2024-12-23 09:45] LABS: Blood Urea Nitrogen 33 mg/dl (7-17); Calcium 8.3 mg/dl (8.4-10.2); Carbon Dioxide 22 mmol/L (22-30); Chloride 101 mmol/L (98-107); Estimated Creatinine Clearance 29 ml/min; Glucose 85 mg/dl (70-99); Potassium 5.0 mmol/L (3.5-5.1); Sodium 126 mmol/L (135-145); eGFR 50.48
[2024-12-23] MEDS: SODIUM CHLORIDE 3% 250 IV (11:45)
--- NOTE | 2024-12-23 13:22 | W.PN.HOSP.TC ---
Today's Communication/Plan
-
3% add by nephro
add low dose Midodrine
Paracentesis to be done Wednesday while inpt
Assessment / Plan
Assessment / Plan
Ms. Beckie Santos is a 79 yo woman with hx alcoholic cirrhosis with ascites (receives weekly paracentesis, follows with Dr. Whyte of GI at [facility]), breast cancer, hypothyroidism, ischemic cardiomyopathy with recovered EF, recent admission 11/28-12/01 for
hyponatremia and YEISON (spironolactone and Lasix held on DC) presents to the ER with weakness.
Triage VS: T 97.4, P 61, RR 18, BP 107/70, SpO2 99%
LABS: WBC 11, Hg 13.5, PLT 159, Na 121, K+ 5., Cl 94, Cr 1.1, Glucose 129
Symptomatic Hyponatremia
-3% saline will be ordered again 12/23
-admitted to tele
-trend Na
Na 121-->124-->125-->124-->126-->126
-appreciate input from Nephrology. JVP seen on exam, patient denies shortness of breath. Low threshold to give IV lasix if patient becomes short of breath overnight. Patient may need IV lasix later in hospital course
-1200cc FWR
-daily weights 46.72-->45.77kg
reviewed with nephrology
Hypotension
BP 92-102/43-60
Spoke to nephro, will add low dose Midodrine
Alcoholic Cirrhosis with Ascites
-s/p paracentesis with 2.5L removal on Monday 12/18
-patient's diuretics Lasix and Spironolactone were stopped last admission
Pt is scheduled to have outpt paracentesis on Wednesday, spoke to Dr. Bullock will do as inpt
Hypothyroidism
-SEMICONDUCTOR TECHNICIAN Synthroid
Ambulatory dysfunction due to hyponatremia
Physical Therapy in consult
Ischemic Cardiomyopathy with recovered EF
-SEMICONDUCTOR TECHNICIAN Coreg
Paroxysmal Atrial Fibrillation
-SEMICONDUCTOR TECHNICIAN Eliquis, Coreg, Amiodarone
GERD - SEMICONDUCTOR TECHNICIAN PPI
Hx Left Breast Cancer s/p Lumpectomy
HLD - SEMICONDUCTOR TECHNICIAN STatin
DVT PPx - Eliquis
Met with son and dgtPipe, August >20 minutes. discussed many concerns
FULL CODE
Anticipated Discharge: > 48 hours
Subjective/Interval History
-
Date of Service: December 23, 2024
generally does not feel well
Objective Data
-
Labs:
Laboratory Results
12/23/24
08:17
WBC 10.7
Hgb 13.1
Hct 35.5 L
Plt Count 149
Sodium 126 L
Potassium 5.0
Chloride 101
Carbon Dioxide 22
BUN 33 H
Creatinine 1.1 H
Glucose 85
Calcium 8.3 L
Vital Signs:
Vital Signs
Temp Pulse Resp BP Pulse Ox
97.4 F 61 18 102/60 98
12/23/24 11:26 12/23/24 11:26 12/23/24 11:26 12/23/24 11:26 12/23/24 11:26
I&O
12/22/24 12/23/24 12/24/24
06:59 06:59 06:59
Intake Total 480 / 480 900 / 900
Balance 480 / 480 900 / 900
Review of Systems
-
History Source: Patient and Coordinated Provider
Constitutional: Denies Fever
Respiratory: Reports No Symptoms; Denies Cough or Trouble Breathing
Cardiac: Reports No Symptoms; Denies Chest Pain
Genitourinary: Reports No Symptoms; Denies Dysuria
Musculoskeletal: Reports Edema
Neuro: Reports Weakness
Physical Exam
-
General: Well Developed, Well Nourished and No Apparent Distress
HEENT: Normocephalic, Atraumatic and Moist Mucous Membranes
Respiratory: Clear to Auscultation; Negative Wheezes, Rales or Rhonchi
Cardiac: Regular Rhythm and S1/S2
GI: Soft, Nontender, Nondistended and Normal Bowel Sounds; Negative Distended
Musculoskeletal: No Clubbing and No Cyanosis; Negative Edema, Right Lower Extrem or Edema, Left Lower Extrem
Neuro: Awake, Alert and Oriented
--- NOTE | 2024-12-23 14:08 | W.PN.NEPH.PH ---
Today's Communication / Plan
-
Hypertonic saline
Assessment/Plan
-
Impression:
Hyponatremia
Etoh Cirrhosis
Ascites
Paroxysmal atrial fibrillation
Hypothyroid
History of left breast cancer with lumpectomy
Hypotension
Hypoalbuminemia 2.8
Plan:
Hyponatremia:
- Likely a function of compromised effective circulating volume in the setting of end-stage liver disease
-Urine sodium of less than 5 consistent with compromised effective circulating volume
-Urine osmolality of 735 Notes excess ADH
-Maintain fluid restriction for hyponatremia
midodrine provided= 5 mg 3 times daily as discussed with primary team
No response to Samsca will start 3% saline
Discussed with family at bedside at length
-
-
Date of Service: December 23, 2024
CC / HPI / ROS
-
Chief Complaint:
Hyponatremia
History of Present Illness:
Presents with low sodium and hypotension with ESLD
Review of Systems:
No chest pain or shortness of breath
Labs
-
Labs:
WBC 10.7 10^3/uL (4.8-10.8) 12/23/24 08:17
RBC 3.79 10^6/uL (4.20-5.40) L 12/23/24 08:17
Hgb 13.1 g/dL (12.0-16.0) 12/23/24 08:17
Hct 35.5 % (37.0-47.0) L 12/23/24 08:17
Plt Count 149 10^3/uL (130-400) 12/23/24 08:17
Sodium 126 mmol/L (135-145) L 12/23/24 08:17
Potassium 5.0 mmol/L (3.5-5.1) 12/23/24 08:17
Chloride 101 mmol/L (98-107) 12/23/24 08:17
Carbon Dioxide 22 mmol/L (22-30) 12/23/24 08:17
BUN 33 mg/dl (7-17) H 12/23/24 08:17
Creatinine 1.1 mg/dL (0.6-1.0) H 12/23/24 08:17
eGFR 50.48 12/23/24 08:17
Glucose 85 mg/dl (70-99) 12/23/24 08:17
Calcium 8.3 mg/dl (8.4-10.2) L 12/23/24 08:17
Kfk-H-Uraxhlbeaeg Pept 413 pg/ml 12/20/24 15:37
Albumin 2.8 g/dl (3.5-5.0) L 12/21/24 06:30
Physical Exam
-
Vital Signs:
Vital Signs
Temp Pulse Resp BP Pulse Ox
97.4 F 61 18 102/60 98
12/23/24 11:26 12/23/24 11:26 12/23/24 11:26 12/23/24 11:26 12/23/24 11:26
Cardiovascular:: Regular rate and rhythm
Respiratory:: Bilateral: CTA
Lung Excursion:: Normal
Abdomen:: Distended, Nontender and Soft
Bowel Sounds:: Normal
Extremity Edema:: None: Bilateral:
[2024-12-23] MEDS: CRESTOR 5 MG PO (17:20)
[2024-12-23] MEDS: PROTONIX 40 MG PO (17:21)
[2024-12-23] MEDS: ZOFRAN 4 MG PO (18:05)
[2024-12-23] MEDS: XALATAN OPHTHALMIC SOLUTION 1 DROP LEFT EYE (21:02)
[2024-12-23] MEDS: COREG 25 MG PO (21:02)
[2024-12-24 03:10] VITALS: BP 105/54
[2024-12-24] MEDS: SYNTHROID 100 MCG PO (05:38)
[2024-12-24 06:00] VITALS: BMI 20.3
[2024-12-24] MEDS: FLOVENT 110 MCG INHALER 2 PUFF INH ×2 (07:50→20:04)
[2024-12-24 08:10] VITALS: BP 101/54
[2024-12-24] MEDS: ELIQUIS 2.5 MG PO ×2 (08:12→19:26)
[2024-12-24] MEDS: PACERONE 200 MG PO (08:12)
[2024-12-24] MEDS: COREG PO (09:35)
[2024-12-24 09:50] LABS: Hematocrit 37.2 % (37.0-47.0); Hemoglobin 13.6 g/dL (12.0-16.0); Mean Corp Hgb Conc. 36.6 g/dL (33.0-37.0); Mean Corpuscular Volume 94.4 fL (81.0-99.0); Nucleated Red Blood Cells % 0 %; Platelet Count 160 10^3/uL (130-400); Red Cell Dist. Width 16.5 % (11.5-14.5)
[2024-12-24 10:13] LABS: ALT (SGPT) 89 U/L (0-35); AST (SGOT) 122 U/L (14-36); Albumin 2.7 g/dl (3.5-5.0); Alkaline Phosphatase 155 U/L (38-126); Blood Urea Nitrogen 33 mg/dl (7-17); Calcium 8.3 mg/dl (8.4-10.2); Carbon Dioxide 19 mmol/L (22-30); Chloride 105 mmol/L (98-107); Estimated Creatinine Clearance 29 ml/min; Glucose 116 mg/dl (70-99); Potassium 4.7 mmol/L (3.5-5.1); Sodium 128 mmol/L (135-145); Total Protein 6.6 g/dl (6.3-8.2); eGFR 50.48
[2024-12-24 12:04] VITALS: BP 110/60
[2024-12-24] MEDS: MILK OF MAGNESIA 30 ML PO ×2 (12:13→16:06)
--- NOTE | 2024-12-24 13:57 | W.PN.HOSP.TC ---
Addendum entered and electronically signed by Carlos Ibrahim MD 12/24/24 14:06:
addendum: Pt also concerned about constipation. No BM since last , will order MOM prn
Original Note:
Today's Communication/Plan
-
3% NS started by Nephrology
paracentesis to be done Wednesday
Midodrine added, folow BP
Assessment / Plan
Assessment / Plan
Ms. Beckie Santos is a 79 yo woman with hx alcoholic cirrhosis with ascites (receives weekly paracentesis, follows with Dr. Whyte of GI at [facility]), breast cancer, hypothyroidism, ischemic cardiomyopathy with recovered EF, recent admission 11/28-12/01 for
hyponatremia and YEISON (spironolactone and Lasix held on DC) presents to the ER with weakness.
Triage VS: T 97.4, P 61, RR 18, BP 107/70, SpO2 99%
LABS: WBC 11, Hg 13.5, PLT 159, Na 121, K+ 5., Cl 94, Cr 1.1, Glucose 129
Symptomatic Hyponatremia
-3% saline will be ordered again 12/23
-admitted to tele
-trend Na
Na 121-->124-->125-->124-->126-->126-given Samsca 12/22->128
-appreciate input from Nephrology. JVP seen on exam, patient denies shortness of breath. Low threshold to give IV lasix if patient becomes short of breath overnight. Patient may need IV lasix later in hospital course
-1200cc FWR
-daily weights 46.72-->45.77-->47.128kg
reviewed with nephrology
Hypotension
BP 92-102/43-60-->12/24 110/60
Spoke to nephro, will add low dose Midodrine
Alcoholic Cirrhosis with Ascites
-s/p paracentesis with 2.5L removal on Monday 12/18
-patient's diuretics Lasix and Spironolactone were stopped last admission
Pt is scheduled to have outpt paracentesis on Wednesday, spoke to Dr. Bullock will do as inpt
Hypothyroidism
-FINISHING MACHINE OPERATOR Synthroid
Ambulatory dysfunction due to hyponatremia
Physical Therapy in consult
Ischemic Cardiomyopathy with recovered EF
-FINISHING MACHINE OPERATOR Coreg
Paroxysmal Atrial Fibrillation
-FINISHING MACHINE OPERATOR Eliquis, Coreg, Amiodarone
GERD - FINISHING MACHINE OPERATOR PPI
Hx Left Breast Cancer s/p Lumpectomy
HLD - FINISHING MACHINE OPERATOR STatin
DVT PPx - Eliquis
Met with son and dgt August >15 minutes. discussed many concerns
FULL CODE
Anticipated Discharge: > 48 hours
Subjective/Interval History
-
Date of Service: December 24, 2024
Pt with lots of concerns
Objective Data
-
Labs:
Laboratory Results
12/24/24
09:36
WBC 12.0 H
Hgb 13.6
Hct 37.2
Plt Count 160
Sodium 128 L
Potassium 4.7
Chloride 105
Carbon Dioxide 19 L
BUN 33 H
Creatinine 1.1 H
Glucose 116 H
Calcium 8.3 L
Total Bilirubin 2.0 H
AST 122 H
ALT 89 H
Alkaline Phosphatase 155 H
Vital Signs:
Vital Signs
Temp Pulse Resp BP Pulse Ox
97.5 F 61 14 110/60 98
12/24/24 12:04 12/24/24 12:04 12/24/24 12:04 12/24/24 12:04 12/24/24 12:04
I&O
12/23/24 12/24/24 12/25/24
06:59 06:59 06:59
Intake Total 900 / 900 960 / 960
Balance 900 / 900 960 / 960
Review of Systems
-
History Source: Patient and Coordinated Provider
Constitutional: Denies Fever
Respiratory: Reports No Symptoms and Trouble Breathing (feels she is having difficulty taking a deep breath); Denies Cough
Cardiac: Reports No Symptoms; Denies Chest Pain
Abdomen/GI: Reports Bloated
Genitourinary: Reports No Symptoms; Denies Dysuria
Musculoskeletal: Reports Edema
Neuro: Reports Weakness
Physical Exam
-
General: Well Developed, Well Nourished and No Apparent Distress
HEENT: Normocephalic, Atraumatic and Moist Mucous Membranes
Respiratory: Clear to Auscultation; Negative Wheezes, Rales or Rhonchi
Cardiac: Regular Rhythm and S1/S2
GI: Soft, Nontender, Normal Bowel Sounds and Distended (ascites has increased)
Musculoskeletal: No Clubbing and No Cyanosis; Negative Edema, Right Lower Extrem or Edema, Left Lower Extrem
Neuro: Awake, Alert and Oriented
--- NOTE | 2024-12-24 15:17 | W.PN.NEPH.PH ---
Today's Communication / Plan
-
Albumin with paracentesis
Assessment/Plan
-
Impression:
Hyponatremia
Etoh Cirrhosis
Ascites
Paroxysmal atrial fibrillation
Hypothyroid
History of left breast cancer with lumpectomy
Hypotension
Hypoalbuminemia 2.8
Plan:
Hyponatremia:
- Likely a function of compromised effective circulating volume in the setting of end-stage liver disease
-Urine sodium of less than 5 consistent with compromised effective circulating volume
-Urine osmolality of 735 Notes excess ADH
-Maintain fluid restriction for hyponatremia
midodrine provided= 5 mg 3 times daily as discussed with primary team
No response to Samsca
Status post hypertonic over the last 24 hours improvement in sodium 128
Paracentesis tomorrow -albumin ordered
Discussed with family at bedside at length
-
-
Date of Service: December 24, 2024
CC / HPI / ROS
-
Chief Complaint:
Hyponatremia
History of Present Illness:
Presents with low sodium and hypotension with ESLD
Review of Systems:
No chest pain or shortness of breath
Labs
-
Labs:
WBC 12.0 10^3/uL (4.8-10.8) H 12/24/24 09:36
RBC 3.94 10^6/uL (4.20-5.40) L 12/24/24 09:36
Hgb 13.6 g/dL (12.0-16.0) 12/24/24 09:36
Hct 37.2 % (37.0-47.0) 12/24/24 09:36
Plt Count 160 10^3/uL (130-400) 12/24/24 09:36
Sodium 128 mmol/L (135-145) L 12/24/24 09:36
Potassium 4.7 mmol/L (3.5-5.1) 12/24/24 09:36
Chloride 105 mmol/L (98-107) 12/24/24 09:36
Carbon Dioxide 19 mmol/L (22-30) L 12/24/24 09:36
BUN 33 mg/dl (7-17) H 12/24/24 09:36
Creatinine 1.1 mg/dL (0.6-1.0) H 12/24/24 09:36
eGFR 50.48 12/24/24 09:36
Glucose 116 mg/dl (70-99) H 12/24/24 09:36
Calcium 8.3 mg/dl (8.4-10.2) L 12/24/24 09:36
Piy-L-Bwxpmvhopsd Pept 413 pg/ml 12/20/24 15:37
Albumin 2.7 g/dl (3.5-5.0) L 12/24/24 09:36
Physical Exam
-
Vital Signs:
Vital Signs
Temp Pulse Resp BP Pulse Ox
97.5 F 61 14 110/60 98
12/24/24 12:04 12/24/24 12:04 12/24/24 12:04 12/24/24 12:04 12/24/24 12:04
Cardiovascular:: Regular rate and rhythm
Respiratory:: Bilateral: CTA
Lung Excursion:: Normal
Abdomen:: Distended, Nontender and Soft
Bowel Sounds:: Normal
Extremity Edema:: None: Bilateral:
[2024-12-24] MEDS: MIRALAX 17 GRAMS PO (16:08)
[2024-12-24 16:09] VITALS: BP 115/58
[2024-12-24] MEDS: CRESTOR 5 MG PO (18:25)
[2024-12-24] MEDS: COREG 25 MG PO (19:26)
[2024-12-24 19:42] VITALS: BP 106/59
[2024-12-24] MEDS: XALATAN OPHTHALMIC SOLUTION 1 DROP LEFT EYE (21:35)
[2024-12-24 23:09] VITALS: BP 111/61
[2024-12-25] VITALS (8 sets, daily range): BP systolic 60–121; BP diastolic 51–65; PULSE 60; BMI 19.9
[2024-12-25] MEDS: TYLENOL 650 MG PO (05:02)
[2024-12-25] MEDS: SYNTHROID 100 MCG PO (05:02)
[2024-12-25 08:05] LABS: Hematocrit 34.7 % (37.0-47.0); Hemoglobin 13.0 g/dL (12.0-16.0); Mean Corp Hgb Conc. 37.5 g/dL (33.0-37.0); Mean Corpuscular Volume 93.3 fL (81.0-99.0); Nucleated Red Blood Cells % 0 %; Platelet Count 137 10^3/uL (130-400); Red Cell Dist. Width 16.5 % (11.5-14.5)
[2024-12-25] MEDS: FLOVENT 110 MCG INHALER 2 PUFF INH ×2 (08:08→20:27)
[2024-12-25] MEDS: COREG PO (08:17)
[2024-12-25] MEDS: PACERONE 200 MG PO (08:18)
[2024-12-25] MEDS: ELIQUIS 2.5 MG PO ×2 (08:18→20:17)
[2024-12-25 08:38] LABS: ALT (SGPT) 85 U/L (0-35); AST (SGOT) 106 U/L (14-36); Albumin 2.5 g/dl (3.5-5.0); Alkaline Phosphatase 137 U/L (38-126); Blood Urea Nitrogen 36 mg/dl (7-17); Calcium 8.3 mg/dl (8.4-10.2); Carbon Dioxide 21 mmol/L (22-30); Chloride 104 mmol/L (98-107); Estimated Creatinine Clearance 32 ml/min; Glucose 77 mg/dl (70-99); Potassium 4.7 mmol/L (3.5-5.1); Sodium 128 mmol/L (135-145); Total Protein 6.2 g/dl (6.3-8.2); eGFR 56.60
[2024-12-25 12:01] LABS: Body Fluid Second Tech EM
[2024-12-25] MEDS: FLEXBUMIN 100 IV (12:06)
--- NOTE | 2024-12-25 12:13 | W.PN.NEPH.PH ---
Today's Communication / Plan
-
follow BMP
Assessment/Plan
-
Impression:
Hyponatremia
Etoh Cirrhosis
Ascites
Paroxysmal atrial fibrillation
Hypothyroid
History of left breast cancer with lumpectomy
Hypotension
Hypoalbuminemia 2.8
Plan:
follow BMP
currently off lasix/spironolactone
did not respond to samsca
continue midodrine
d/w son
-
-
Date of Service: December 25, 2024
CC / HPI / ROS
-
Chief Complaint:
Hyponatremia
History of Present Illness:
Presents with low sodium and hypotension with ESLD
Na stable at 128
BP stable with midodrine
s/p LVP today
Review of Systems:
No chest pain or shortness of breath
Labs
-
Labs:
WBC 12.8 10^3/uL (4.8-10.8) H 12/25/24 07:24
RBC 3.72 10^6/uL (4.20-5.40) L 12/25/24 07:24
Hgb 13.0 g/dL (12.0-16.0) 12/25/24 07:24
Hct 34.7 % (37.0-47.0) L 12/25/24 07:24
Plt Count 137 10^3/uL (130-400) 12/25/24 07:24
Sodium 128 mmol/L (135-145) L 12/25/24 07:24
Potassium 4.7 mmol/L (3.5-5.1) 12/25/24 07:24
Chloride 104 mmol/L (98-107) 12/25/24 07:24
Carbon Dioxide 21 mmol/L (22-30) L 12/25/24 07:24
BUN 36 mg/dl (7-17) H 12/25/24 07:24
Creatinine 1.0 mg/dL (0.6-1.0) 12/25/24 07:24
eGFR 56.60 12/25/24 07:24
Glucose 77 mg/dl (70-99) 12/25/24 07:24
Calcium 8.3 mg/dl (8.4-10.2) L 12/25/24 07:24
Qlq-V-Xtpeglmoktd Pept 413 pg/ml 12/20/24 15:37
Albumin 2.5 g/dl (3.5-5.0) L 12/25/24 07:24
Physical Exam
-
Vital Signs:
Vital Signs
Temp Pulse Resp BP Pulse Ox
98.0 F 60 16 119/61 99
12/25/24 09:35 12/25/24 09:35 12/25/24 09:35 12/25/24 09:35 12/25/24 09:35
Cardiovascular:: Regular rate and rhythm
Respiratory:: Bilateral: Coarse
Lung Excursion:: Normal
Abdomen:: Nontender and Soft
Bowel Sounds:: Normal
Extremity Edema:: None: Bilateral:
--- NOTE | 2024-12-25 14:05 | CM ---
Chart reviewed. Care ongoing at this time
Plan is for skilled rehab at d/c, referrals prev submitted. [facility] preferred [facility]. Updated clinicals sent in [facility].
[facility] has no beds at this time
At this time, no response from [facility], reached out to [facility]/admissions to review
Plan: SNF, pending accepting facility ([facility] preferred)
--- NOTE | 2024-12-25 15:33 | W.PN.HOSP.TC ---
Today's Communication/Plan
-
s/p Paracentesis
PT for ambulatory dysfxn
Follow BMP
Assessment / Plan
Assessment / Plan
79 yo woman with hx alcoholic cirrhosis with ascites (receives weekly paracentesis, follows with Dr. Whyte of GI at [facility]), breast cancer, hypothyroidism, ischemic cardiomyopathy with recovered EF, recent admission 11/28-12/01 for hyponatremia and YEISON
(spironolactone and Lasix held on DC) presents to the ER with weakness.
Symptomatic Hyponatremia
hypervolemic hyponatremia from cirrhosis
- improving from 121 on admit -->128
nephrology managing
- treated with 3% saline and tolvaptan
consider IV lasix for diuresis if needed
-1200cc FWR
-daily weights
Hypotension
In setting of cirrhosis
Stable with low dose Midodrine
Alcoholic Cirrhosis with Ascites
-s/p paracentesis with 2.6L removed 12/17. 25G albumin ordered per pt's protocol from [place]. Gets para weekly.
-patient's diuretics Lasix and Spironolactone were stopped last admission
Ammonia is WNL
Hypothyroidism
Synthroid
Ambulatory dysfunction due to hyponatremia
Physical Therapy consult
Ischemic Cardiomyopathy with recovered EF
Discontinue Coreg due to low blood pressure
Continue statin
Paroxysmal Atrial Fibrillation
Eliquis, Amiodarone
Rate controlled
DVT PPx - Eliquis
FULL CODE
Anticipated Discharge: > 48 hours
Subjective/Interval History
-
Date of Service: December 25, 2024
Patient seen after paracentesis, feeling okay, main concern today is her not walking, as well as dry heaves, as well as feeling like she has not urinated. I asked RN to perform bladder scan and there was only 24 CC, and patient did void. Son at
bedside. He called her liver Dr.'s office today and is hoping to hear back and asked and also asked me to call the office. I did call their office and they confirmed that they received the information from the son and Dr. Whyte will call him
back. He also asked me if Dr. Leone, who works with Dr. Whyte, would be able to see the patient at however I found out Dr. Leone does not round patient.
Objective Data
-
Labs:
Laboratory Results
12/25/24
07:24
WBC 12.8 H
Hgb 13.0
Hct 34.7 L
Plt Count 137
Sodium 128 L
Potassium 4.7
Chloride 104
Carbon Dioxide 21 L
BUN 36 H
Creatinine 1.0
Glucose 77
Calcium 8.3 L
Total Bilirubin 1.9 H
AST 106 H
ALT 85 H
Alkaline Phosphatase 137 H
Vital Signs:
Vital Signs
Temp Pulse Resp BP Pulse Ox
98.0 F 60 16 119/61 99
12/25/24 09:35 12/25/24 09:35 12/25/24 09:35 12/25/24 09:35 12/25/24 09:35
I&O
12/24/24 12/25/24 12/26/24
06:59 06:59 06:59
Intake Total 960 / 960 510 / 510
Balance 960 / 960 510 / 510
Review of Systems
-
All other systems: Reviewed and negative
Physical Exam
-
General: No Apparent Distress
HEENT: Moist Mucous Membranes, Anicteric and PERRLA
Respiratory: Clear to Auscultation; Negative Wheezes, Rales or Rhonchi
Cardiac: Regular Rhythm; Negative Murmur or Rub
GI: Soft, Nontender, Nondistended, Normal Bowel Sounds and Organomegaly (1 fb)
Musculoskeletal: No Edema
Skin: Warm and Dry; Negative Rash, Ulcers, Lesions or Jaundice
Neuro: Awake, AO x 3, Nonfocal/Grossly Intact (no asterixis) and Other (strength 5/5 BLE)
Psych: Calm
Data Reviewed
-
Labs: Labs Reviewed by me, Discussed with Patient and Discussed with Family
Old Records: Reviewed
[2024-12-25] MEDS: CRESTOR 5 MG PO (18:11)
[2024-12-25] MEDS: PROTONIX 40 MG PO (18:12)
[2024-12-25] MEDS: XALATAN OPHTHALMIC SOLUTION 1 DROP LEFT EYE (21:48)
[2024-12-26 03:20] VITALS: BP 100/53
[2024-12-26] MEDS: SYNTHROID 100 MCG PO (05:12)
[2024-12-26 06:00] VITALS: BMI 19.2
[2024-12-26 06:37] LABS: Hematocrit 35.4 % (37.0-47.0); Hemoglobin 13.0 g/dL (12.0-16.0); Mean Corp Hgb Conc. 36.7 g/dL (33.0-37.0); Mean Corpuscular Volume 94.1 fL (81.0-99.0); Platelet Count 135 10^3/uL (130-400); Red Cell Dist. Width 16.4 % (11.5-14.5)
[2024-12-26 07:03] LABS: ALT (SGPT) 78 U/L (0-35); AST (SGOT) 114 U/L (14-36); Albumin 3.0 g/dl (3.5-5.0); Alkaline Phosphatase 141 U/L (38-126); Blood Urea Nitrogen 36 mg/dl (7-17); Calcium 8.3 mg/dl (8.4-10.2); Carbon Dioxide 21 mmol/L (22-30); Chloride 101 mmol/L (98-107); Estimated Creatinine Clearance 31 ml/min; Glucose 76 mg/dl (70-99); Potassium 5.1 mmol/L (3.5-5.1); Sodium 127 mmol/L (135-145); Total Protein 6.4 g/dl (6.3-8.2); eGFR 56.60
[2024-12-26] MEDS: FLOVENT 110 MCG INHALER 2 PUFF INH ×2 (08:17→18:46)
[2024-12-26] MEDS: PACERONE 200 MG PO (08:38)
[2024-12-26] MEDS: ELIQUIS 2.5 MG PO ×2 (08:38→19:14)
[2024-12-26 08:48] VITALS: BP 98/56
--- NOTE | 2024-12-26 09:36 | W.PN.HOSP.TC ---
Today's Communication/Plan
-
see bold
Assessment / Plan
Assessment / Plan
79 yo woman with hx alcoholic cirrhosis with ascites (receives weekly paracentesis, follows with Dr. Whyte of GI at [facility]), breast cancer, hypothyroidism, ischemic cardiomyopathy with recovered EF, recent admission 11/28-12/01 for hyponatremia and YEISON
(spironolactone and Lasix held on DC) presents to the ER with weakness.
Symptomatic Hyponatremia
hypervolemic hyponatremia from cirrhosis
- treated with 3% saline and tolvaptan, did not respond to tolvaptan
- improving from 121 on admit -->128, Na 127 today
- nephro says Na 125-129 is acceptable
- 1200cc FWR
- Plan for discharge to short-term rehab tomorrow
Hypotension
In setting of cirrhosis
Stable with low dose Midodrine
Alcoholic Cirrhosis with Ascites
-s/p paracentesis with 2.6L removed 12/17. 25G albumin ordered per pt's protocol from [place]. Gets para weekly.
-patient's diuretics Lasix and Spironolactone were stopped last admission
-Ammonia is WNL
Weakness
- PT/OT recommends rehab
Hypothyroidism
Synthroid
Ambulatory dysfunction due to hyponatremia
Physical Therapy consult
Ischemic Cardiomyopathy with recovered EF
Discontinue Coreg due to low blood pressure
Continue statin
Paroxysmal Atrial Fibrillation
Eliquis, Amiodarone
Rate controlled
DVT prophylaxis�Eliquis
Full code
Updated son at bedside 12/26
Total time spent to see the patient on the floor, examine the patient, review data and lab results, discuss treatment plan with patient, nursing staff around 50 minutes.
Physical Exam
General: Appears chronically ill, no acute distress
HEENT: Normocephalic, Atraumatic, EOMI, MMM
Respiratory: Clear to Auscultation bilaterally
Cardiac: Normal S1/S2, Regular Rate and Rhythm
GI: Soft, Nontender, distended with ascites
Extremities: No Clubbing, Cyanosis, or Edema
Neuro: Nonfocal/Grossly Intact
Anticipated Discharge: Within 24 hours
Subjective/Interval History
-
Date of Service: December 26, 2024
Patient reports feeling weak and tired. Denies chest pain, denies shortness of breath. Son reports her dry heaving. No vomiting. No fever.
Objective Data
-
Labs:
Laboratory Results
12/26/24
06:16
WBC 11.3 H
Hgb 13.0
Hct 35.4 L
Plt Count 135
Sodium 127 L
Potassium 5.1
Chloride 101
Carbon Dioxide 21 L
BUN 36 H
Creatinine 1.0
Glucose 76
Calcium 8.3 L
Total Bilirubin 2.2 H
AST 114 H
ALT 78 H
Alkaline Phosphatase 141 H
Vital Signs:
Vital Signs
Temp Pulse Resp BP Pulse Ox
97.8 F 61 14 98/56 98
12/26/24 08:48 12/26/24 08:48 12/26/24 08:48 12/26/24 08:48 12/26/24 08:48
I&O
12/25/24 12/26/24 12/27/24
06:59 06:59 06:59
Intake Total 510 / 510 600 / 600
Balance 510 / 510 600 / 600
[2024-12-26 11:27] VITALS: BP 107/59
--- NOTE | 2024-12-26 14:37 | CM ---
communications station manager reviewed patient's chart and met with patient and son at bedside, patient has been accepted at [facility], per physician patient is not stable for discharge today, patient will be cleared tomorrow, call placed to admissions at [facility]
requesting a bed for tomorrow.
Plan; Skilled placement at [facility]
Report [phone]
--- NOTE | 2024-12-26 14:44 | W.PN.NEPH.PH ---
Today's Communication / Plan
-
follow BMP
Assessment/Plan
-
Impression:
Hyponatremia
Etoh Cirrhosis
Ascites
Paroxysmal atrial fibrillation
Hypothyroid
History of left breast cancer with lumpectomy
Hypotension
Hypoalbuminemia 2.8
Plan:
follow BMP
currently off lasix/spironolactone
did not respond to samsca previously
continue midodrine
would accept Na levels 125-129 for her
d/w son
for rehab tomorrow
-
-
Date of Service: December 26, 2024
CC / HPI / ROS
-
Chief Complaint:
Hyponatremia
History of Present Illness:
Presents with low sodium and hypotension with ESLD
Na stable at 127
BP stable with midodrine
Review of Systems:
No chest pain or shortness of breath
weak
Labs
-
Labs:
WBC 11.3 10^3/uL (4.8-10.8) H 12/26/24 06:16
RBC 3.76 10^6/uL (4.20-5.40) L 12/26/24 06:16
Hgb 13.0 g/dL (12.0-16.0) 12/26/24 06:16
Hct 35.4 % (37.0-47.0) L 12/26/24 06:16
Plt Count 135 10^3/uL (130-400) 12/26/24 06:16
Sodium 127 mmol/L (135-145) L 12/26/24 06:16
Potassium 5.1 mmol/L (3.5-5.1) 12/26/24 06:16
Chloride 101 mmol/L (98-107) 12/26/24 06:16
Carbon Dioxide 21 mmol/L (22-30) L 12/26/24 06:16
BUN 36 mg/dl (7-17) H 12/26/24 06:16
Creatinine 1.0 mg/dL (0.6-1.0) 12/26/24 06:16
eGFR 56.60 12/26/24 06:16
Glucose 76 mg/dl (70-99) 12/26/24 06:16
Calcium 8.3 mg/dl (8.4-10.2) L 12/26/24 06:16
Vef-Q-Otxmfedgtlh Pept 413 pg/ml 12/20/24 15:37
Albumin 3.0 g/dl (3.5-5.0) L 12/26/24 06:16
Physical Exam
-
Vital Signs:
Vital Signs
Temp Pulse Resp BP Pulse Ox
98.3 F 61 14 107/59 99
12/26/24 11:27 12/26/24 11:27 12/26/24 11:27 12/26/24 11:27 12/26/24 11:27
Cardiovascular:: Regular rate and rhythm
Respiratory:: Bilateral: Coarse
Lung Excursion:: Normal
Abdomen:: Nontender and Soft
Bowel Sounds:: Normal
Extremity Edema:: None: Bilateral:
[2024-12-26 16:04] VITALS: BP 106/52
[2024-12-26] MEDS: CRESTOR 5 MG PO (17:16)
[2024-12-26 19:31] VITALS: BP 127/66
[2024-12-26] MEDS: XALATAN OPHTHALMIC SOLUTION 1 DROP LEFT EYE (21:37)
[2024-12-26 23:21] VITALS: BP 113/59
[2024-12-27 02:52] VITALS: BP 114/61
[2024-12-27] MEDS: SYNTHROID 100 MCG PO (04:58)
[2024-12-27 06:00] VITALS: BMI 19.8
[2024-12-27] MEDS: FLOVENT 110 MCG INHALER 2 PUFF INH ×2 (07:36→19:53)
--- NOTE | 2024-12-27 07:57 | W.PN.HOSP.TC ---
Addendum entered and electronically signed by Jim Quevedo MD 12/27/24 15:27:
Correction, last paracentesis was 12/25. No need for repeat paracentesis today.
Original Note:
Today's Communication/Plan
-
Transfer to [facility] when bed available
Assessment / Plan
Assessment / Plan
79 yo woman with hx alcoholic cirrhosis with ascites (receives weekly paracentesis, follows with Dr. Whyte of GI at [facility]), breast cancer, hypothyroidism, ischemic cardiomyopathy with recovered EF, recent admission 11/28-12/01 for hyponatremia and YEISON
(spironolactone and Lasix held on DC) presents to the ER with weakness.
Symptomatic Hyponatremia
hypervolemic hyponatremia from cirrhosis
- treated with 3% saline and tolvaptan, did not respond to tolvaptan
- improving from 121 on admit -->128, Na 126 today
- nephro says Na 125-129 is acceptable
- continue 1200cc FWR, trend Na
- transfer to [facility] when bed available, accepting physician Dr. Bayron Monaco
Hypotension
In setting of cirrhosis
Stable with midodrine 5 mg 3 times daily
Alcoholic Cirrhosis with Ascites
-s/p paracentesis with 2.6L removed 7/20. 25G albumin ordered per pt's protocol from [place]. Gets para weekly.
-patient's diuretics Lasix and Spironolactone were stopped last admission due to hypotension
-follows w/ Dr. Whyte, liver specialist at [facility]
-c/s IR for paracentesis today
Weakness
- PT/OT recommends rehab
Hypothyroidism
Synthroid
Ambulatory dysfunction due to hyponatremia
Physical Therapy consult
Ischemic Cardiomyopathy with recovered EF
Discontinue Coreg due to low blood pressure
Continue statin
Paroxysmal Atrial Fibrillation
Eliquis, Amiodarone
Rate controlled
DVT prophylaxis�Eliquis
Full code
Updated son at bedside 12/27
Total time spent to see the patient on the floor, examine the patient, review data and lab results, discuss treatment plan with patient, nursing staff around 55 minutes.
Physical Exam
General: Appears chronically ill, no acute distress
HEENT: Normocephalic, Atraumatic, EOMI, MMM
Respiratory: Clear to Auscultation bilaterally
Cardiac: Normal S1/S2, Regular Rate and Rhythm
GI: Soft, Nontender, distended with ascites
Extremities: No Clubbing, Cyanosis, or Edema
Neuro: Nonfocal/Grossly Intact
Anticipated Discharge: Within 24 hours
Subjective/Interval History
-
Date of Service: December 27, 2024
Patient continues to feel weak. Denies chest pain, denies shortness of breath. She has intermittent dry heaves. No fever, no vomiting.
Objective Data
-
Labs:
Laboratory Results
12/27/24
06:00
Sodium Pending
Potassium Pending
Chloride Pending
Carbon Dioxide Pending
BUN Pending
Creatinine Pending
Glucose Pending
Calcium Pending
Vital Signs:
Vital Signs
Temp Pulse Resp BP Pulse Ox
97.8 F 70 18 114/61 96
12/27/24 02:52 12/27/24 07:38 12/27/24 07:38 12/27/24 02:52 12/27/24 07:38
I&O
12/26/24 12/27/24 12/28/24
06:59 06:59 06:59
Intake Total 600 / 600 660 / 660
Balance 600 / 600 660 / 660
[2024-12-27 08:39] VITALS: BP 106/62
[2024-12-27] MEDS: PACERONE 200 MG PO (08:45)
[2024-12-27] MEDS: ELIQUIS 2.5 MG PO ×2 (08:45→19:27)
[2024-12-27 09:55] LABS: Blood Urea Nitrogen 38 mg/dl (7-17); Calcium 8.5 mg/dl (8.4-10.2); Carbon Dioxide 19 mmol/L (22-30); Chloride 101 mmol/L (98-107); Estimated Creatinine Clearance 29 ml/min; Glucose 75 mg/dl (70-99); Potassium 4.7 mmol/L (3.5-5.1); Sodium 126 mmol/L (135-145); eGFR 50.48
--- NOTE | 2024-12-27 10:56 | CM ---
CM following re: discharge planning.
Reviewed pt's chart, met with pt.
Per MD, pt is accepted by the liver team at [facility]. Awaiting for a bed availability.
D/C plan: transfer to [facility] when a bed available.
CM will follow to assist pt with transfer to [facility].
[2024-12-27 12:04] VITALS: BP 123/68
[2024-12-27 15:26] VITALS: BP 120/61
[2024-12-27 15:47] VITALS: BMI 19.8
[2024-12-27] MEDS: PROTONIX 40 MG PO (17:32)
[2024-12-27] MEDS: CRESTOR 5 MG PO (17:32)
[2024-12-27] MEDS: ZOFRAN 4 MG PO (17:32)
[2024-12-27] MEDS: XALATAN OPHTHALMIC SOLUTION 1 DROP LEFT EYE (19:28)
[2024-12-27 19:30] VITALS: BP 121/72
[2024-12-27 23:54] VITALS: BP 130/69
[2024-12-28] VITALS (7 sets, daily range): BP systolic 67–148; BP diastolic 62–73; BMI 19.2
[2024-12-28] MEDS: SYNTHROID 100 MCG PO (05:22)
[2024-12-28] MEDS: FLOVENT 110 MCG INHALER 2 PUFF INH ×2 (07:44→19:12)
[2024-12-28] MEDS: PACERONE 200 MG PO (08:40)
[2024-12-28] MEDS: ELIQUIS 2.5 MG PO ×2 (08:40→20:33)
--- NOTE | 2024-12-28 10:07 | CM ---
CM reviewed chart, plan remains transfer to [facility] when bed available. As of this morning, no beds available. CM will continue to follow for all discharge planning needs.
Plan; transfer to [facility] when bed available
[2024-12-28 10:40] LABS: Blood Urea Nitrogen 38 mg/dl (7-17); Calcium 8.3 mg/dl (8.4-10.2); Carbon Dioxide 19 mmol/L (22-30); Chloride 101 mmol/L (98-107); Estimated Creatinine Clearance 31 ml/min; Glucose 96 mg/dl (70-99); Potassium 4.9 mmol/L (3.5-5.1); Sodium 126 mmol/L (135-145); eGFR 56.60
[2024-12-28 11:14] LABS: Ammonia 78 umol/L (9-30)
[2024-12-28 12:26] LABS: Body Fluid Second Tech em
[2024-12-28] MEDS: ALBUMIN 5% 250 IV ×2 (12:38→14:05)
[2024-12-28] MEDS: DUPHALAC/CHRONULAC 20 GRAMS PO ×3 (12:39→22:16)
--- NOTE | 2024-12-28 13:19 | W.PN.HOSP.TC ---
Addendum entered and electronically signed by Jim Quevedo MD 12/28/24 13:47:
Daughter and son wish to change patient's CODE STATUS to DNR, order placed.
Original Note:
Today's Communication/Plan
-
Transfer to [facility] when bed available
Assessment / Plan
Assessment / Plan
79 yo woman with hx alcoholic cirrhosis with ascites (receives weekly paracentesis, follows with Dr. Whyte of GI at [facility]), breast cancer, hypothyroidism, ischemic cardiomyopathy with recovered EF, recent admission 11/28-12/01 for hyponatremia and YEISON
(spironolactone and Lasix held on DC) presents to the ER with weakness.
Symptomatic Hyponatremia
hypervolemic hyponatremia from cirrhosis
- treated with 3% saline and tolvaptan, did not respond to tolvaptan
- improving from 121 on admit -->128, Na 126 today
- nephro says Na 125-129 is acceptable
- continue 1200cc FWR, trend Na
- transfer to [facility] when bed available, accepting physician Dr. Bayron Monaco
Hepatic encephalopathy
- Ammonia level 78
- Start lactulose 20 g 4 times daily, trend ammonia level
Hypotension
In setting of cirrhosis
Stable with midodrine 5 mg 3 times daily
Alcoholic Cirrhosis with Ascites
-s/p paracentesis with 2.6L removed 12/25. 25G albumin ordered per pt's protocol from [place]. Gets para weekly.
-patient's diuretics Lasix and Spironolactone were stopped last admission due to hypotension
-follows w/ Dr. Whyte, liver specialist at [facility]
-patient's abdomen was more distended today, IR was consulted for another paracentesis draining 650 cc, 25 g albumin ordered per [facility] protocol 12/28
-patient's overall clinical condition is deteriorating, informed son and daughter that this may be the beginning of the end for her
-recommend DNR�they will think about it, also will ask hospice nurse to give information for hospice in the future
Weakness
- PT/OT recommends rehab
Hypothyroidism
Synthroid
Ambulatory dysfunction due to hyponatremia
Physical Therapy consult
Ischemic Cardiomyopathy with recovered EF
Discontinue Coreg due to low blood pressure
Continue statin
Paroxysmal Atrial Fibrillation
Eliquis, Amiodarone
Rate controlled
DVT prophylaxis�Eliquis
Full code
Updated son and daughter at bedside 12/28
Total time spent to see the patient on the floor, examine the patient, review data and lab results, discuss treatment plan with patient, nursing staff around 53 minutes.
Physical Exam
General: Appears chronically ill, no acute distress
HEENT: Normocephalic, Atraumatic, EOMI, MMM
Respiratory: Clear to Auscultation bilaterally
Cardiac: Normal S1/S2, Regular Rate and Rhythm
GI: Soft, Nontender, distended with ascites
Extremities: No Clubbing, Cyanosis, or Edema
Neuro: Nonfocal/Grossly Intact
Anticipated Discharge: 24 - 48 hours
Subjective/Interval History
-
Date of Service: December 27, 2024
Patient appears more confused today. Her abdomen is more distended. She does not feel well. No fever, no vomiting.
Objective Data
-
Labs:
Laboratory Results
12/27/24
08:12
Sodium 126 L
Potassium 4.7
Chloride 101
Carbon Dioxide 19 L
BUN 38 H
Creatinine 1.1 H
Glucose 75
Calcium 8.5
Vital Signs:
Vital Signs
Temp Pulse Resp BP Pulse Ox
97.3 F 62 14 120/61 98
12/27/24 15:26 12/27/24 15:26 12/27/24 15:26 12/27/24 15:26 12/27/24 15:26
I&O
12/26/24 12/27/24 12/28/24
06:59 06:59 06:59
Intake Total 600 / 600 660 / 660
Balance 600 / 600 660 / 660
--- NOTE | 2024-12-28 13:52 | HOSPNOTE ---
Spoke with daughter and son about hospice and the philosophy. They will discuss with patient and get back to me tomorrow with a decision. CM and Attending aware of plan.
[2024-12-28] MEDS: CRESTOR 5 MG PO (17:26)
--- NOTE | 2024-12-28 17:45 | W.PN.UPDATE ---
Update Note
Progress Note Update
signed off
pt for transfer
cont fluid restrict
[2024-12-28] MEDS: XALATAN OPHTHALMIC SOLUTION 1 DROP LEFT EYE (20:33)
[2024-12-29] MEDS: SYNTHROID 100 MCG PO (05:31)
[2024-12-29 06:00] VITALS: BMI 19.3
[2024-12-29 07:00] VITALS: BP 129/67
[2024-12-29] MEDS: FLOVENT 110 MCG INHALER 2 PUFF INH ×2 (07:47→19:19)
[2024-12-29 08:25] LABS: Ammonia 23 umol/L (9-30)
[2024-12-29] MEDS: PACERONE 200 MG PO (08:59)
[2024-12-29] MEDS: DUPHALAC/CHRONULAC PO ×2 (08:59→09:07)
[2024-12-29] MEDS: ELIQUIS 2.5 MG PO ×2 (08:59→20:46)
--- NOTE | 2024-12-29 09:21 | W.PN.HOSP.TC ---
Addendum entered and electronically signed by Jim Quevedo MD 12/29/24 16:35:
Family would still like patient to be transferred to [facility].
Transfer to [facility] when bed available.
Original Note:
Today's Communication/Plan
-
Continue goals of care discussion
Assessment / Plan
Assessment / Plan
79 yo woman with hx alcoholic cirrhosis with ascites (receives weekly paracentesis, follows with Dr. Whyte of GI at [facility]), breast cancer, hypothyroidism, ischemic cardiomyopathy with recovered EF, recent admission 11/28-12/01 for hyponatremia and YEISON
(spironolactone and Lasix held on DC) presents to the ER with weakness.
Symptomatic Hyponatremia
hypervolemic hyponatremia from cirrhosis
- treated with 3% saline and tolvaptan, did not respond to tolvaptan
- improving from 121 on admit -->128, Na 126 today
- nephro says Na 125-129 is acceptable
- continue 1200cc FWR, trend Na
- awaiting transfer to [facility] when bed available, accepting physician Dr. Bayron Monaco
- 12/29-patient's confusion resolved, now states she does not want to be transferred to [facility]
- Continue goals of care discussion
Hepatic encephalopathy
- Ammonia level 78
- Resolved status post lactulose, ammonia 23 today
Hypotension
In setting of cirrhosis
Stable with midodrine 5 mg 3 times daily, will add hold parameters as blood pressure trended up today
Alcoholic Cirrhosis with Ascites
-s/p paracentesis with 2.6L removed 12/25. 25G albumin ordered per pt's protocol from [facility]. Gets para weekly.
-patient's diuretics Lasix and Spironolactone were stopped last admission due to hypotension
-follows w/ Dr. Whyte, liver specialist at [facility]
-patient's abdomen was more distended today, IR was consulted for another paracentesis draining 650 cc, 25 g albumin ordered per [facility] protocol 12/28
-patient's overall clinical condition is deteriorating, informed son and daughter that this may be the beginning of the end for her
-Appreciate hospice input, continue goals of care discussion
Weakness
- PT/OT recommends rehab
Hypothyroidism
Synthroid
Ambulatory dysfunction due to hyponatremia
Physical Therapy consult
Ischemic Cardiomyopathy with recovered EF
Discontinue Coreg due to low blood pressure
Continue statin
Paroxysmal Atrial Fibrillation
Eliquis, Amiodarone
Rate controlled
DVT prophylaxis�Eliquis
Full code
Updated son and daughter at bedside 12/29
Total time spent to see the patient on the floor, examine the patient, review data and lab results, discuss treatment plan with patient, nursing staff around 55 minutes.
Physical Exam
General: Appears chronically ill, no acute distress
HEENT: Normocephalic, Atraumatic, EOMI, MMM
Respiratory: Clear to Auscultation bilaterally
Cardiac: Normal S1/S2, Regular Rate and Rhythm
GI: Soft, Nontender, distended with ascites
Extremities: No Clubbing, Cyanosis, or Edema
Neuro: Lucid
Anticipated Discharge: 24 - 48 hours
Subjective/Interval History
-
Date of Service: December 29, 2024
Confusion resolved. Patient more alert, awake today. She complains of continued weakness. Denies abdominal pain. No chest pain, no shortness of breath. No fever, no vomiting.
Objective Data
-
Labs:
Laboratory Results
12/29/24 12/29/24
08:03 09:03
Sodium Cancelled Pending
Potassium Cancelled Pending
Chloride Cancelled Pending
Carbon Dioxide Cancelled Pending
BUN Cancelled Pending
Creatinine Cancelled Pending
Glucose Cancelled Pending
Calcium Cancelled Pending
Vital Signs:
Vital Signs
Temp Pulse Resp BP Pulse Ox
97.1 F 60 16 129/67 98
12/29/24 07:00 12/29/24 07:50 12/29/24 07:50 12/29/24 07:00 12/29/24 07:50
I&O
12/28/24 12/29/24 12/30/24
06:59 06:59 06:59
Intake Total 690 / 690 977 / 977
Output Total 550 / 550
Balance 690 / 690 427 / 427
[2024-12-29] MEDS: DUPHALAC/CHRONULAC 20 GRAMS PO (09:40)
[2024-12-29 10:32] LABS: Blood Urea Nitrogen 38 mg/dl (7-17); Calcium 8.9 mg/dl (8.4-10.2); Carbon Dioxide 22 mmol/L (22-30); Chloride 102 mmol/L (98-107); Estimated Creatinine Clearance 31 ml/min; Glucose 81 mg/dl (70-99); Potassium 3.9 mmol/L (3.5-5.1); Sodium 130 mmol/L (135-145); eGFR 56.60
[2024-12-29 11:30] VITALS: BP 131/71; PULSE 63; O2SAT 97
--- NOTE | 2024-12-29 12:03 | CM ---
CM reviewed chart, consult placed for consult, referral placed to Hospice in [facility]. Plan remains to transfer to [facility] once bed available. CM will continue to follow for all discharge planning needs.
Plan; transfer to [facility] when bed available
--- NOTE | 2024-12-29 12:22 | HOSPNOTE ---
Spoke with patient about hospice and the philosophy. The patient stated she would like to take the weekend to think about things and is still hopeful that there will be a bed at [facility] to seek treatment for her liver. The plan is to follow up on
Wednesday and discuss hospice vs treatments. More information to follow unless patient declines over the weekend family and patient understand and will allow for comfort. CM and Attending aware.
[2024-12-29 16:16] VITALS: BP 137/64
[2024-12-29] MEDS: PROTONIX 40 MG PO (17:00)
[2024-12-29] MEDS: CRESTOR 5 MG PO (17:00)
[2024-12-29] MEDS: XALATAN OPHTHALMIC SOLUTION 1 DROP LEFT EYE (20:46)
[2024-12-29 23:30] VITALS: BP 126/59
[2024-12-30] MEDS: SYNTHROID 100 MCG PO (05:45)
[2024-12-30 06:00] VITALS: BMI 18.2
[2024-12-30] MEDS: FLOVENT 110 MCG INHALER 2 PUFF INH ×2 (07:25→19:33)
[2024-12-30 07:57] VITALS: BP 126/60
[2024-12-30] MEDS: ELIQUIS 2.5 MG PO (08:29)
[2024-12-30] MEDS: PACERONE 200 MG PO (08:29)
[2024-12-30 08:42] LABS: Blood Urea Nitrogen 45 mg/dl (7-17); Calcium 8.4 mg/dl (8.4-10.2); Carbon Dioxide 22 mmol/L (22-30); Chloride 101 mmol/L (98-107); Estimated Creatinine Clearance 30 ml/min; Glucose 85 mg/dl (70-99); Potassium 4.0 mmol/L (3.5-5.1); Sodium 128 mmol/L (135-145); eGFR 56.60
[2024-12-30 08:45] LABS: Ammonia 30 umol/L (9-30)
--- NOTE | 2024-12-30 12:09 | CM ---
CM reviewed chart, patient seen bedside with son and daughter, requesting patient transition to hospice. TT to web content writer Hospice coverage, provided son, Pipe, contact number for web content writer Hospice to contact. TT to Hospitalist with update. CM will
continue to follow for all discharge planning needs.
Plan; patient/family agreement for Hospice
[2024-12-30] MEDS: ALDACTONE 50 MG PO (12:14)
[2024-12-30] MEDS: LASIX 20 MG PO (12:14)
--- NOTE | 2024-12-30 13:40 | HOSPNOTE ---
Addendum entered by Alyce Harding RN 12/30/24 17:08:
Patient has been moved to 2N - spoke with Pipe and Marcia via telephone to confirm that they would like to proceed with comfort care and d/c all other medications. They are in agreement - TT Dr Quevedo
Addendum entered by Alyce Harding RN 12/30/24 13:49:
Clarification: Patient must have symptoms that can not be managed in an outpatient setting to quailify as a GIP appropriate admission to Hospice. Hospice will continue to follow and will admit either in the hospital, home or facility as appropriate
Original Note:
Phone conversation with pt's son Pipe and daughter Marcia. This morning their mother told them that she is tired and does not want to seek any additional treatment. I did not speak to the patient as she was sleeping. At this time there are no
symptons being managed. TT with Dr Quevedo and Tala DAILEY. Patient to be placed on comfort care and will reevaluate on Wednesday. I have prepared the family that if she does not exhibit any symptoms she will have to be discharged from the hospital to home
or a facility. Spoke to Tammie in Admissions to request a bed on 2N
--- NOTE | 2024-12-30 16:25 | PTCARENOTE ---
Patient transfer from 4W to 2N on comfort care. Vs documented. No c/o at this time. Family at bedside. call abbasi within reach. Comfort measures in place.
[2024-12-30 16:26] VITALS: BP 123/63
--- NOTE | 2024-12-30 16:42 | W.PN.HOSP.TC ---
Today's Communication/Plan
-
see bold
Assessment / Plan
Assessment / Plan
79 yo woman with hx alcoholic cirrhosis with ascites (receives weekly paracentesis, follows with Dr. Whyte of GI at [facility]), breast cancer, hypothyroidism, ischemic cardiomyopathy with recovered EF, recent admission 11/28-12/01 for hyponatremia and YEISON
(spironolactone and Lasix held on DC) presents to the ER with weakness.
Symptomatic Hyponatremia
hypervolemic hyponatremia from cirrhosis
- treated with 3% saline and tolvaptan, did not respond to tolvaptan
- improving from 121 on admit -->128, Na 126 today
- nephro says Na 125-129 is acceptable
- continue 1200cc FWR, trend Na
- 12/30 patient and family wish to transition to comfort care measures only, cancel transfer to [facility]
Hepatic encephalopathy
- Ammonia level 78
- Resolved status post lactulose, ammonia 30
Hypotension
In setting of cirrhosis
Stop midodrine
Alcoholic Cirrhosis with Ascites
-s/p paracentesis with 2.6L removed 12/25. 25G albumin ordered per pt's protocol from [place]. Gets para weekly.
-patient's diuretics Lasix and Spironolactone were stopped last admission due to hypotension
-follows w/ Dr. Whyte, liver specialist at [facility]
-s/p paracentesis draining 650 cc, 25 g albumin ordered per [facility] protocol 12/28
-patient's overall clinical condition is deteriorating, informed son and daughter that this may be the beginning of the end for her
-12/30 patient and family wish to transition to comfort care measures only
-appreciate hospice, will discontinue unnecessary medications, initiate comfort care measures only
Weakness
- PT/OT recommends rehab
Hypothyroidism
Stop synthroid
Ambulatory dysfunction due to hyponatremia
Ischemic Cardiomyopathy with recovered EF
Stop statin
Paroxysmal Atrial Fibrillation
Stop Eliquis, continue Amiodarone for rate control
DVT prophylaxis�SCDs
DNR
Updated son and daughter at bedside 12/30
Total time spent to see the patient on the floor, examine the patient, review data and lab results, discuss treatment plan with patient, nursing staff around 53 minutes.
Physical Exam
General: Appears chronically ill, no acute distress
HEENT: Normocephalic, Atraumatic, EOMI, MMM
Respiratory: Clear to Auscultation bilaterally
Cardiac: Normal S1/S2, Regular Rate and Rhythm
GI: Soft, Nontender, distended with ascites
Extremities: No Clubbing, Cyanosis, or Edema
Neuro: Lucid
Anticipated Discharge: > 48 hours
Subjective/Interval History
-
Date of Service: December 30, 2024
Patient continues to feel weak. She denies abdominal pain. Denies chest pain, denies shortness of breath. No fever, no vomiting.
Objective Data
-
Labs:
Laboratory Results
12/30/24
08:05
Sodium 128 L
Potassium 4.0
Chloride 101
Carbon Dioxide 22
BUN 45 H
Creatinine 1.0
Glucose 85
Calcium 8.4
Vital Signs:
Vital Signs
Temp Pulse Resp BP Pulse Ox
98.1 F 65 16 123/63 97
12/30/24 16:26 12/30/24 16:26 12/30/24 16:26 12/30/24 16:26 12/30/24 16:26
I&O
12/29/24 12/30/24 12/31/24
06:59 06:59 06:59
Intake Total 977 / 977 980 / 980
Output Total 550 / 550
Balance 427 / 427 980 / 980
[2024-12-30 19:00] VITALS: BP 124/63
[2024-12-30] MEDS: SEROQUEL 25 MG PO (21:02)
[2024-12-30] MEDS: VALIUM INJECTION 2 MG IV (21:02)
[2024-12-30] MEDS: XALATAN OPHTHALMIC SOLUTION 1 DROP LEFT EYE (21:02)
[2024-12-31 07:00] VITALS: BP 117/62
[2024-12-31] MEDS: FLOVENT 110 MCG INHALER INH ×2 (07:41→20:32)
--- NOTE | 2024-12-31 08:42 | W.PN.HOSP.TC ---
Today's Communication/Plan
-
see bold
Assessment / Plan
Assessment / Plan
79 yo woman with hx alcoholic cirrhosis with ascites (receives weekly paracentesis, follows with Dr. Whyte of GI at [facility]), breast cancer, hypothyroidism, ischemic cardiomyopathy with recovered EF, recent admission 11/28-12/01 for hyponatremia and YEISON
(spironolactone and Lasix held on DC) presents to the ER with weakness.
Symptomatic Hyponatremia
Hypervolemic hyponatremia from cirrhosis
- treated with 3% saline and tolvaptan, did not respond to tolvaptan
- improving from 121 on admit -->128, Na 126 today
- nephro says Na 125-129 is acceptable
- continue 1200cc FWR, trend Na
- 12/30 patient and family wished to transition to comfort care measures only, cancel transfer to [place]
- continue comfort care measures only
Hepatic encephalopathy
- Ammonia level 78
- Resolved status post lactulose, last ammonia 30
Hypotension
In setting of cirrhosis
Stopped midodrine since patient is now comfort care only
Alcoholic Cirrhosis with Ascites
-s/p paracentesis with 2.6L removed 12/25. 25G albumin ordered per pt's protocol from [place]. Gets para weekly.
-patient's diuretics Lasix and Spironolactone were stopped last admission due to hypotension
-follows w/ Dr. Whyte, liver specialist at [facility]
-s/p paracentesis draining 650 cc, 25 g albumin ordered per [place] protocol 12/28
-patient's overall clinical condition is deteriorating, informed son and daughter that this may be the beginning of the end for her
-12/30 patient and family wished to transition to comfort care measures only
-appreciate hospice, discontinued unnecessary medications, initiated comfort care measures only
Weakness
- PT/OT recommends rehab
Hypothyroidism
Stopped synthroid
Ambulatory dysfunction due to hyponatremia
Ischemic Cardiomyopathy with recovered EF
Stopped statin
Paroxysmal Atrial Fibrillation
Stopped Eliquis, continue Amiodarone for rate control
DVT prophylaxis�SCDs
DNR
Updated son and daughter at bedside 12/30
Updated son at bedside 12/31
Total time spent to see the patient on the floor, examine the patient, review data and lab results, discuss treatment plan with patient, nursing staff around 35 minutes.
Physical Exam
General: Appears chronically ill, no acute distress
HEENT: Normocephalic, Atraumatic, EOMI, MMM
Respiratory: Clear to Auscultation bilaterally
Cardiac: Normal S1/S2, Regular Rate and Rhythm
GI: Soft, Nontender, distended with ascites
Extremities: No Clubbing, Cyanosis, or Edema
Neuro: Lucid
Anticipated Discharge: > 48 hours
Subjective/Interval History
-
Date of Service: December 31, 2024
Patient resting quietly. No fever, no vomiting.
Objective Data
-
Vital Signs:
Vital Signs
Temp Pulse Resp BP Pulse Ox
97.7 F 68 14 117/62 96
12/31/24 07:00 12/31/24 07:00 12/31/24 07:00 12/31/24 07:00 12/31/24 07:00
I&O
12/30/24 12/31/24 01/01/25
06:59 06:59 06:59
Intake Total 980 / 980
Balance 980 / 980
[2024-12-31] MEDS: PACERONE PO (10:38)
[2024-12-31] MEDS: MORPHINE SULFATE 2 MG IV (13:42)
[2024-12-31] MEDS: PROTONIX PO (16:55)
[2024-12-31] MEDS: MORPHINE SULFATE 1 MG IV ×2 (17:31→19:32)
[2024-12-31] MEDS: SEROQUEL PO (19:31)
[2024-12-31 19:49] VITALS: BP 125/61
[2024-12-31] MEDS: VALIUM INJECTION 2 MG IV (22:08)
[2024-12-31] MEDS: XALATAN OPHTHALMIC SOLUTION LEFT EYE (22:25)
[2025-01-01 06:54] VITALS: BP 131/70
[2025-01-01] MEDS: PACERONE PO (07:00)
[2025-01-01] MEDS: FLOVENT 110 MCG INHALER INH ×2 (07:24→19:27)
--- NOTE | 2025-01-01 08:59 | W.PN.HOSP.TC ---
Today's Communication/Plan
-
f/w hospice recommendation
Stop Seroquel
Resume Synthroid
Assessment / Plan
Assessment / Plan
Physical Exam
General: Appears chronically ill, no acute distress
HEENT: Normocephalic, Atraumatic, EOMI, MMM
Respiratory: Clear to Auscultation bilaterally
Cardiac: Normal S1/S2,
GI: Soft, Nontender( although pt reported pain in abdomen ) , mildly distended with ascites
Extremities: No Clubbing, Cyanosis, or Edema
Neuro: Lucid, followed commands, lethrgy
Psych: no agitation
79 yo woman with hx alcoholic cirrhosis with ascites (receives weekly paracentesis, follows with Dr. Whyte of GI at [facility]), breast cancer, hypothyroidism, ischemic cardiomyopathy with recovered EF, recent admission 11/28-12/01 for hyponatremia and YEISON
(spironolactone and Lasix held on DC) presents to the ER with weakness.
Symptomatic Hyponatremia with TME
Seems to resolve
mentation is better, able to follow commands.
Hypervolemic hyponatremia from cirrhosis
- treated with 3% saline and tolvaptan, did not respond to tolvaptan
- improving from 121 on admit -->128,
- nephro says Na 125-129 is acceptable
- continue 1200cc FWR,
- stop Seroquel due to lethargy
- 12/30 patient and family wished to transition to comfort care measures only, canceled transfer to [place]
- continue comfort care measures only
TME and Hepatic encephalopathy
- Ammonia level 78, went down
- Resolved status post lactulose, last ammonia 30
Chronic Hypotension
In setting of cirrhosis
Stopped midodrine since patient is now comfort care only
Alcoholic Cirrhosis with Ascites
-s/p paracentesis with 2.6L removed 12/25. 25G albumin ordered per pt's protocol from [place]. Gets para weekly.
-patient's diuretics Lasix and Spironolactone were stopped last admission due to hypotension
-follows w/ Dr. Whyte, liver specialist at [facility]
-s/p paracentesis draining 650 cc, 25 g albumin ordered per [place] protocol 12/28
-patient's overall clinical condition is deteriorating, informed son and daughter that this may be the beginning of the end for her
-12/30 patient and family wished to transition to comfort care measures only
-appreciate hospice, discontinued unnecessary medications, initiated comfort care measures only
Failure to thrive with Weakness
- PT/OT recommended rehab but now goal is comfort
Hypothyroidism
Resume Synthroid
Ambulatory dysfunction due to hyponatremia
Ischemic Cardiomyopathy with recovered EF
Stopped statin
Paroxysmal Atrial Fibrillation
Stopped Eliquis, continue Amiodarone for rate control
DVT prophylaxis�SCDs
DNR
DR. Quevedo Updated family as noted.
Total time spent to see the patient on the floor, examine the patient, review data and lab results, discuss treatment plan with patient, hospice nurse, nursing staff around 55 minutes.
Anticipated Discharge: > 48 hours
Subjective/Interval History
-
Date of Service: January 01, 2025
She is resting in vbbed, reports abdominal discomfort, no nausea
Objective Data
-
Vital Signs:
Vital Signs
Temp Pulse Resp BP Pulse Ox
98.2 F 82 17 131/70 96
01/01/25 06:54 01/01/25 06:54 01/01/25 06:54 01/01/25 06:54 01/01/25 07:46
I&O
12/31/24 01/01/25 01/02/25
06:59 06:59 06:59
Intake Total 0 / 0
Output Total 400 / 400
Balance -400 / -400
--- NOTE | 2025-01-01 10:42 | CM ---
Patient seen at bedside with son on 2 . Patient stated that she is 'ready to go'. youth liaison officer made aware. CM will continue to follow for discharge planning needs.
Plan;Hospice assessment
[2025-01-01] MEDS: MORPHINE SULFATE 1 MG IV ×2 (11:15→20:14)
--- NOTE | 2025-01-01 12:15 | HOSPNOTE ---
Patient will remain on comfort care. The patient is awake and visiting with friends and son patient is eating ice chips. The patient does complain of pain in her back and will most likely remain here until she passes since no further treatment is
wanted, however for now the patient could be managed at home but that could change quickly. We will follow daily and support patient and family. The patient will remain comfort.
--- NOTE | 2025-01-01 12:58 | PTCARENOTE ---
Patient drowsy/lethargic this AM, able to be woken with verbal stimuli and can communicate pain to this RN. Soap and water bath provided, B/L heel and elbow foams placed, stage 2 on sacrum, foam replaced. RUE skin tear dressing replaced with dry 4x4
gauze. Patient medicated for pain in back and abdomen with turning and repositioning, poor appetite but able to drink water/ice chips with assistance. Bedrest q2hr turn. Son at bedside updated on plan of care.
[2025-01-01 19:20] VITALS: BP 116/63
[2025-01-01] MEDS: XALATAN OPHTHALMIC SOLUTION LEFT EYE (20:25)
[2025-01-02] MEDS: MORPHINE SULFATE 1 MG IV ×4 (00:52→12:07)
[2025-01-02] MEDS: SYNTHROID 100 MCG PO (05:43)
--- NOTE | 2025-01-02 06:03 | PTCARENOTE ---
Comfort care measures in place. Daughter & VANDA visited HS. Abd round, no BM, +flatus. Sanders in place; aniket urine. Patient medicated for pain x2 per the MAR. Repositioning with pillows utilized to optimize comfort. Ice chips and water provided w/
assistance. Foam dressings intact. Call abbasi within reach. Pt thankful for care.
[2025-01-02 07:00] VITALS: BP 122/63
[2025-01-02] MEDS: PACERONE 200 MG PO (07:50)
[2025-01-02] MEDS: COREG 3.125 MG PO (07:50)
--- NOTE | 2025-01-02 09:05 | W.PN.HOSP.TC ---
Today's Communication/Plan
-
Patient seems to need IV morphine for pain. Might consider scheduled dose ?
f/w hospice nurse recommendations
Assessment / Plan
Assessment / Plan
Physical Exam
General: Appears chronically ill, no acute distress
HEENT: Normocephalic, Atraumatic, EOMI, MMM
Respiratory: Clear to Auscultation bilaterally
Cardiac: Normal S1/S2,
GI: Soft, Nontender( although pt reported pain in abdomen ) , mildly distended with ascites
Extremities: No Clubbing, Cyanosis, or Edema
Neuro: Lucid, followed commands, lethargy
Psych: no agitation
79 yo woman with hx alcoholic cirrhosis with ascites (receives weekly paracentesis, follows with Dr. Whyte of GI at [facility]), breast cancer, hypothyroidism, ischemic cardiomyopathy with recovered EF, recent admission 11/28-12/01 for hyponatremia and YEISON
(spironolactone and Lasix held on DC) presents to the ER with weakness.
Hyponatremia with TME
Resolved.
mentation went back to baseline and was able to decide for her care.
Hypervolemic hyponatremia from cirrhosis
- treated with 3% saline and tolvaptan, did not respond to tolvaptan
- improving from 121 on admit -->128,
- nephro says Na 125-129 is acceptable
- continue 1200cc FWR,
- stopped Seroquel due to lethargy
- 12/30 patient and family wished to transition to comfort care measures only, canceled transfer to [place]
- continue comfort care measures only
TME and Hepatic encephalopathy
- Ammonia level 78, went down
- Resolved status post lactulose, last ammonia 30
Chronic Hypotension
In setting of cirrhosis
Stopped midodrine since patient is now comfort care only
Alcoholic Cirrhosis with Ascites
-s/p paracentesis with 2.6L removed 12/25. 25G albumin ordered per pt's protocol from [place]. Gets para weekly.
-patient's diuretics Lasix and Spironolactone were stopped last admission due to hypotension
-follows w/ Dr. Whyte, liver specialist at [facility]
-s/p paracentesis draining 650 cc, 25 g albumin ordered per [place] protocol 12/28
-patient's overall clinical condition is deteriorating, informed son and daughter that this may be the beginning of the end for her
-12/30 patient and family wished to transition to comfort care measures only
-appreciate hospice, discontinued unnecessary medications, initiated comfort care measures only
Failure to thrive with Weakness
- PT/OT recommended rehab but now goal is comfort
Hypothyroidism
Resume Synthroid
Ambulatory dysfunction due to hyponatremia
Ischemic Cardiomyopathy with recovered EF
Stopped statin
Paroxysmal Atrial Fibrillation
Stopped Eliquis, continue Amiodarone for rate control
DVT prophylaxis�SCDs
DNR
DR. Quevedo Updated family as noted.
Total time spent to see the patient on the floor, examine the patient, review data and lab results, discuss treatment plan with patient, hospice nurse, nursing staff around 55 minutes.
Anticipated Discharge: Within 24 hours
Subjective/Interval History
-
Date of Service: January 02, 2025
She said ( she had painful night, requested morphine)
Objective Data
-
Vital Signs:
Vital Signs
Temp Pulse Resp BP Pulse Ox
97.8 F 81 12 122/63 98
01/02/25 07:00 01/02/25 07:00 01/02/25 07:00 01/02/25 07:00 01/02/25 07:00
I&O
01/01/25 01/02/25 01/03/25
06:59 06:59 06:59
Intake Total 0 / 0
Output Total 400 / 400 300 / 300
Balance -400 / -400 -300 / -300
--- NOTE | 2025-01-02 10:15 | PTCARENOTE ---
Pt saying 'I am ready to .' Given IV morphine for R abd and back pain. Son at bedside and updated on plan of care.
--- NOTE | 2025-01-02 11:22 | HOSPNOTE ---
Patient will be admitted inpatient hospice for pain management requiring IV medications for pain. Attending and CM aware of plan. Admissions was called and new chart will be started and patient will be seen daily.
--- NOTE | 2025-01-02 11:32 | CM ---
CM following re: discharge planning.
Discharge order noted.
Per cycle liaison, pt is admitted for inpatient hospice with hospice GIP.
CM is available for emotional support.
[2025-01-02] MEDS: ZOFRAN 4 MG IV (12:07)
--- NOTE | 2025-01-02 12:30 | PN.CDI ---
Addendum entered and electronically signed by Mason Palumbo MD 01/02/25 12:40:
Moderate Malnutrition
Original Note:
CDI
- -
CDI:
Physician Documentation Request
Admit Date: 12/20/24 21:14
Dear Doctor Deepali,
12/31 notes and assessment state 'Subcutaneous loss over rib cage-Moderate, Orbital -Moderate. Muscle loss over clavicle - moderate, Temporal - moderate.'
12/29 note states ' With < 75% estimated needs > 1 month and observed muscle and fat wasting pt meets AND/ASPEN criteria for moderate protein calorie malnutrition of chronic illness. '
Based on the above information and your assessment, which of the following most accurately represents the patient's nutritional status?
Moderate Malnutrition
Other (please specify)
[place] Criteria ([facility] Hospitalist 2017)
2 or more criteria must be present for either
non severe or severe malnutrition
Note that the criteria differs related to the
presence of an acute or chronic illness
Acute Illness Chronic Illness
Energy Intake Non Severe: <75% for >7 days Non Severe: <75% for >1 month
Severe: <50% for >5 days Severe: <75% for >1 month
Weight Loss Non Severe: 1-2% over 1 week Non Severe: 5% over 1 month
5% over 1 month 7.5% over 3 months
7.5% over 3 months 10% over 6 months
1 year N/A 20% over 1 year
Severe: >2% over 1 week Severe: >5% over 1 month
>5% over 1 month >7.5% over 3 months
>7.5% over 3 months >10% over 6 months
1 year N/A >20% over 1 year
Body Fat Non Severe: Mild Decrease Non Severe: Mild Loss
Severe: Moderate Decrease Severe: Severe Loss
Muscle Mass Non Severe: Mild Decrease Non Severe: Mild Loss
Severe: Moderate Decrease Severe: Severe Loss
Fluid Accumulation Non Severe: Mild Accumulation Non Severe: Mild Accumulation
Severe: Moderate to severe Severe: Moderate to severe
accumulation accumulation
Reduced Editor Continuity And Script Strength Non Severe: N/A Non Severe: N/A
Severe: Measurably reduced Severe: Measurably reduced
Use of terms such as suspected, likely, concern for, or probable (associated with a specific diagnosis that is being evaluated, monitored, or treated as if it exists) are acceptable and can be coded in the inpatient setting, when documented at the
time of discharge.
Thank you,
Patricia Yun RN, BSN
CDI Specialist
tiger text
Please use your independent medical judgment in providing your response.
--- NOTE | 2025-01-02 12:46 | W.DCSUMMARY ---
Discharge Summary
Discharge Data
Date of Admission: 12/20/24
Date of Discharge: 01/02/25
-
Pending Results: No
Hospital Course
79 years old female with history of advanced liver cirrhosis/liver dysfunction and ascites admitted to the hospital with weakness. Patient was found to have hyponatremia with ascites. Patient was admitted to the hospital. She was followed by
missile facilities repairer. She was given multiple treatment for hyponatremia including tolvaptan, hypertonic saline, fluid restriction and albumin. She was diagnosed with metabolic encephalopathy. Her mentation improved. Patient has a primary manager traffic
with [place]. Initial plan to improve her symptoms and stabilize the patient and transfer her to [facility] for further treatment. She had elevation in ammonia was given lactulose. She had paracentesis. Upon improvement, patient did not want to
pursue further treatment and expressed her wishes to not to be transferred to [facility] but to pursue palliative/hospice care. Goals of care were discussed with the patient and her family and they met with hospice nurse. Patient continued to
have abdominal discomfort and needed morphine for pain control. Patient was transferred to inpatient hospice services endorsed on hospital for further care.
Discharge Plan
-
Patient Disposition: Hospice - Inpatient
Discharge Diagnosis/Procedures: Acute on chronic hyponatremia, alcoholic liver cirrhosis, hypotension, weakness
Additional Diets: 42 ounce fluid restriction
Activity: As tolerated
Referrals:
Ugo Kendall MD [Family Provider, Family Practice] - in one week
Prescriptions:
Discontinued
levothyroxine 100 MCG tablet
100 mcg PO DAILY
rosuvastatin 5 MG tablet
5 mg PO QPM
latanoprost 0.005 % Drops
1 drp LEFT EYE HS
amiodarone 200 mg Tablet
200 mg PO DAILY
pantoprazole 40 mg Tablet,Delayed Release (Dr/Ec)
40 mg PO Q48H@1700
fluticasone furoate [Arnuity Ellipta] 200 mcg/actuation Blister With Device
1 inh INHALATION R DAILY
carvedilol 25 mg Tablet
25 mg PO BID
ondansetron HCl 4 mg Tablet
4 mg PO Q8HPRN PRN (Reason: nausea/vomiting)
fluticasone propionate 50 mcg/actuation Lorraine,Suspension
2 spray INTRANASAL HS
Eliquis 2.5 mg Tablet
2.5 mg PO BID
Discharge Orders:
Discharge Patient (As Directed); Ordered 01/02/25
Ordered By: Mason Palumbo
Discharge Date and Time
Discharge Date/Time: 01/02/25 12:12
Print Language: ALBANIAN
== END 2025-01-02 12:12 | disposition hospice, inpatient (51) | DRG 432 ==
LOC: 2 NORTH 21:14
PROVIDERS: Emergency Medicine; Family Medicine; Internal Medicine; Nurse Practitioner; Radiology Vascular & Interventional Radiology; Specialist; ADMITTING PHYSICIAN Student in an Organized Health Care Education/Training Program; ATTENDING PHYSICIAN Internal Medicine; CONSULT PHYSICIAN Specialist; EMERGENCY PHYSICIAN Student in an Organized Health Care Education/Training Program; FAMILY PHYSICIAN Family Medicine
PROC: 0W9G3ZZ Drainage of Peritoneal Cavity, Percutaneous Approach (ICD-10-PCS; 2024-12-25)
DX: K70.31 Alcoholic cirrhosis of liver with ascites (principal); G92.8 Other toxic encephalopathy; E87.1 Hypo-osmolality and hyponatremia; I50.32 Chronic diastolic (congestive) heart failure; E44.0 Moderate protein-calorie malnutrition; Z68.1 Body mass index [BMI] 19.9 or less, adult; Z51.5 Encounter for palliative care; Z66 Do not resuscitate; I25.5 Ischemic cardiomyopathy; I25.10 Atherosclerotic heart disease of native coronary artery without angina pectoris; I48.0 Paroxysmal atrial fibrillation; J45.909 Unspecified asthma, uncomplicated; E78.00 Pure hypercholesterolemia, unspecified; K21.9 Gastro-esophageal reflux disease without esophagitis; F32.A Depression, unspecified; E03.9 Hypothyroidism, unspecified; E88.09 Other disorders of plasma-protein metabolism, not elsewhere classified; I95.9 Hypotension, unspecified; K76.82 Hepatic encephalopathy; R26.89 Other abnormalities of gait and mobility; Z95.810 Presence of automatic (implantable) cardiac defibrillator; Z85.3 Personal history of malignant neoplasm of breast; Z87.891 Personal history of nicotine dependence; Z79.01 Long term (current) use of anticoagulants; Z79.890 Hormone replacement therapy; Z79.899 Other long term (current) drug therapy
CPT/HCPCS: 49083; 80048; 80053; 81003; 81015; 82140; 82248; 83735; 83880; 83935; 84295; 84300; 85025; 85027; 85610; 85730; 87015; 87070; 87086; 87205; 89051; 93005; 94640; 97163; 97530; P9045; P9047

== ENCOUNTER 2025-01-02 12:13 | Inpatient (IN) | payer OTHER, SELFPAY ==
[2025-01-02 07:00] VITALS: BP 122/63
--- NOTE | 2025-01-02 12:46 | W.DCSUMMARY ---
Discharge Summary
Discharge Data
Date of Admission: 12/20/24
Date of Discharge: 01/02/25
-
Pending Results: No
Hospital Course
79 years old female with history of advanced liver cirrhosis/liver dysfunction and ascites admitted to the hospital with weakness. Patient was found to have hyponatremia with ascites. Patient was admitted to the hospital. She was followed by
manager of production. She was given multiple treatment for hyponatremia including tolvaptan, hypertonic saline, fluid restriction and albumin. She was diagnosed with metabolic encephalopathy. Her mentation improved. 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
with [place]. Initial plan to improve her symptoms and stabilize the patient and transfer her to [facility] for further treatment. She had elevation in ammonia was given lactulose. She had paracentesis. Upon improvement, patient did not want to
pursue further treatment and expressed her wishes to not to be transferred to [facility] but to pursue palliative/hospice care. Goals of care were discussed with the patient and her family and they met with hospice nurse. Patient continued to
have abdominal discomfort and needed morphine for pain control. Patient was transferred to inpatient hospice services endorsed on hospital for further care.
Discharge Plan
-
Patient Disposition: Hospice - Inpatient
Discharge Diagnosis/Procedures: Liver failure/abdominal pain/failure to thrive/hyponatremia/malnutrition
Referrals:
UNKNOWN - PT NOT,INTERVIEWE [Family Provider]
Prescriptions:
Discontinued
Bcaa Capsules
2 cap PO NOON
Discharge Orders:
Discharge Patient (As Directed); Ordered 01/02/25
Ordered By: Mason Palumbo
Discharge Date and Time
Print Language: SYRIAC
[2025-01-02] MEDS: MORPHINE SULFATE 2 MG IV ×2 (16:10→20:10)
--- NOTE | 2025-01-02 18:06 | PTCARENOTE ---
Pt drowsy today but wakes to verbal stimuli and is oriented. Can make needs known and verbalize pain level. Medicated multiple times today w/ IV morphine for abd and back pain. Son and daughter at bedside.
[2025-01-02 19:29] VITALS: BP 116/62
[2025-01-02] MEDS: COREG PO (20:02)
[2025-01-03] MEDS: PROTONIX 40 MG PO (07:48)
[2025-01-03] MEDS: COREG 3.125 MG PO ×2 (07:50→20:42)
[2025-01-03] MEDS: PACERONE 200 MG PO (07:50)
[2025-01-03] MEDS: SYNTHROID PO (07:54)
--- NOTE | 2025-01-03 09:44 | HOSPNOTE ---
Patient was admitted inpatient hospice 01/02/25. Patient will be seen daily by hospice and patient is appropriate for inpatient hospice for pain management requiring IV medications.
[2025-01-03] MEDS: MORPHINE SULFATE 2 MG IV ×3 (09:52→20:48)
--- NOTE | 2025-01-03 10:43 | W.PN.HSP.1 ---
Assessment / Plan
-
79 years old female admitted to inpatient hospice for treatment of end-stage liver disease with abdominal pain and recurrent ascites
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
Failure to thrive with weakness
Ischemic cardiomyopathy status post ICD
Hypothyroidism
Paroxysmal atrial fibrillation
Left bundle branch block
Hyponatremia
Hypotension
Discussed with hospice nurse. Continue with as needed morphine as needed. Continue with rate control medication. Will reach out to cardiology service for ICD deactivation.
Today's Communication
PRN Morphine
Interval History
-
she complains of abdominal pain and weakness
Physical Exam
-
Temp Pulse Resp BP Pulse Ox
98.1 F 75 12 119/60 96
01/02/25 19:29 01/03/25 07:50 01/02/25 19:29 01/03/25 07:50 01/03/25 02:06
General: Appears Chronically Ill
Respiratory: Decreased Breath Sounds
Cardiology: Regular Rhythm and S1/S2
GI: Soft and Distended
Genito-Urinary: Negative Sanders
Musculoskeletal: No Cyanosis
Neuro: Awake and Alert
Psych: Calm
--- NOTE | 2025-01-03 11:01 | CM ---
CM following re: discharge planning
Pt is admitted to inpatient hospice level of care yesterday, continue supportive care.
CM is available for emotional support.
--- NOTE | 2025-01-03 11:23 | HOSPNOTE ---
Call placed to [facility] spoke with Eric [phone] and he will be here by 2pm to turn off AICD. Patient is very anxious today and I asked Attending for an order for Valium. Patient has been medicated with IV pain medication. Patient
continues to be inpatient appropriate for pain management and agitation. Patient will be seen daily.
--- NOTE | 2025-01-03 12:47 | HOSPNOTE ---
GROUP LEADER SEMICONDUCTOR TESTING VISITED 79 YEAR OLD PATIENT TO CONDUCT INITIAL [employer] BUSINESS ANALYST ASSESSMENT. PATIENT RECENTLY ADMITTED ONTO HOSPICE SERVICES AND [facility] LEVEL OF CARE WIT THE PRIMARY DIAGNOSIS OF CIRRHOSIS. NURSE REPORTED PATIENT DOING FINE, MEDICATIONS
ADMINISTERED, AND PATIENT RESTING. [employer] BUSINESS ANALYST SPOKE WITH PATIENT'S SON SUSIE BRIEFLY HE WAS GOING TO LUNCH. SUSIE REPORTED HE'S DOING OKAY, JUST MAKING SURE PATIENT HAS WHAT SHE NEEDS AND ENSURING VISITORS ARE COMING TIMELY TO RELIEVE ONE ANOTHER. SUSIE
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 SUSIE REPORTED PATIENT'S FRIEND VIVEK IS VISITING PATIENT NOW UNTIL HE GETS BACK FROM LUNCH. [employer] BUSINESS ANALYST INFORMED SUSIE, [employer] BUSINESS ANALYST WILL LEAVE HER CONTACT INFORMATION
IN PATIENT'S ROOM REQUESTED. [employer] BUSINESS ANALYST GREETED PATIENT AND PATIENT'S FRIEND VIVEK UPON ENTERING PATIENT'S ROOM. VIVEK REPORTED PATIENT ASLEEP. PATIENT LYING IN BEED AND APPEARED TO BE ASLEEP AND RESTING COMFORTABLY, PATIENT RESPONDED HELLO AND DENIES
PAIN. PATIENT REPORTED ALL SUSIE NEEDS IS FOR HIS SISTER DAVIS TO BE HERE BECAUSE THEY'RE VERY CLOSE. 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 PATIENT REPORTED SHE AND VIVEK HAVE BEEN FRIENDS FOR OVER 30
YEARS THEY MET AT THE [employer]IS [employer]UB AND PLAYED TENNIS TOGETHER FOR OVER 30 YEARS. PATIENT REPORTED SHE HAS 2 CHILDREN SUSIE AND DAVIS AND 2 GRANDCHILDREN. PATIENT REPORTED SHE LOVED EVERYTHING ABOUT MOTHERHOOD AND ENJOYED HELPING HER CHILDREN GROW UP.
PATIENT REPORTED HER GRANDCHILDREN BOUGHT THE BEAUTIFUL MILLER IN HER ROOM AND THAT HER CHILDREN PLAY TENNIS WELL. PATIENT'S MOUTH BECAME DRY AND SHE REQUESTED ICE CHIPS AND WATER, [employer] BUSINESS ANALYST RAISED THE HEAD OF PATIENT'S BED TO ENSURE SHE DOESN'T
CHOKE, VIVEK FED PATIENT ICE CHIPS AND A FEW SIPS OF WATER. PATIENT REPORTED SHE'S YAZIDI AND IS AFFILIATED WITH [facility] IN [place]. FAMILY APPEARS TO BE COPING APPROPRIATELY. ARRANGEMENTS IN PROGRESS. PRAYER AND EMOTIONAL SUPPORT PROVIDED.
PATIENT MEETS [facility] CRITERIA FOR SN ASSESSMENTS, MANAGEMENT OF PAIN, AND AGITATION THAT COULD NOT BE MANAGED AT HOME AND/OR IN AN OUTPATIENT SETTING. DISCHARGE PLANNING CONTINUES.
S[employer] BUSINESS ANALYST WILL CONDUCT VISITS ONCE A WEEK WHILE ON [facility] LEVEL OF CARE TO PROVIDE SUPPORTIVE SERVICES AND MONITOR FOR ADDITIONAL SERVICES.
--- NOTE | 2025-01-03 16:59 | HOSPNOTE ---
Beckie was sleeping comfortably, minimally responsive. She did not show signs of pain. Extended family members Arturo and Sara were present. Son Pipe returned from a break and shared background about his mother, who was very caring and devoted to
her family. Her Church juan is very important to her. Pipe believes she is accepting and peaceful, ready to be with God. She is affiliated with [facility] in [place]. Road Mechanic provided emotional and spiritual support to patient and
family through presence, dialogue, life review, Scripture reading and prayer. Road Mechanic will arrange for a television parts tester visit and Sacrament of the Sick, at family's request. Road Mechanic will continue support through visits 2x week.
[2025-01-03 19:50] VITALS: BP 112/60
[2025-01-03 20:07] VITALS: BP 112/60
[2025-01-03] MEDS: VALIUM INJECTION 2 MG IV (21:11)
[2025-01-04] MEDS: SYNTHROID 100 MCG PO (05:22)
[2025-01-04] MEDS: MORPHINE SULFATE 2 MG IV ×4 (07:34→21:31)
[2025-01-04] MEDS: PROTONIX 40 MG PO (07:37)
[2025-01-04] MEDS: PACERONE 200 MG PO (07:37)
[2025-01-04] MEDS: COREG 3.125 MG PO (07:37)
[2025-01-04 07:38] VITALS: BP 111/56
--- NOTE | 2025-01-04 08:56 | CHAP ---
Addendum entered by Yoselin Ware 01/04/25 10:13:
Elizabethghassan Grant will be here early this afternoon.
Original Note:
[facility] Aide request relayed to on-call air conditioning equipment mechanic for Sacrament [facility] the Sick ([facility]). Awaiting reply.
--- NOTE | 2025-01-04 11:20 | W.PN.HSP.1 ---
Addendum entered and electronically signed by Mason Palumbo MD 01/06/25 11:25:
PE:
General: Appears Chronically Ill
Respiratory: Decreased Breath Sounds
GI: Soft and Distended
Genito-Urinary: Sanders
Musculoskeletal: No Edema
Neuro: Sedated
Psych: lethargic
Heart: S1 S2
Original Note:
Assessment / Plan
-
79 years old female admitted to inpatient hospice for treatment of end-stage liver disease with abdominal pain and recurrent ascites
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
Failure to thrive with weakness
Ischemic cardiomyopathy status post ICD
Hypothyroidism
Paroxysmal atrial fibrillation
Left bundle branch block
Hyponatremia
Hypotension
Discussed with nurse, patient was not safe to swallow tablets this morning. Patient is lethargic and not answering question. Discussed with hospice nurse. Continue with as needed morphine as needed. Continue with rate control medication.
Recommended to add IV diazepam for restlessness/anxiety/insomnia. Status post ICD deactivation.
Today's Communication
Continue with as needed diazepam/as needed morphine
Stopped oral tablets due to aspiration risk
Interval History
-
Patient is lethargic, unable to answer questions
Nurse, patient could not take her pills appropriately this morning
Physical Exam
-
Temp Pulse Resp BP Pulse Ox
97.7 F 69 12 111/56 96
01/04/25 07:38 01/04/25 07:38 01/03/25 20:07 01/04/25 07:38 01/04/25 07:38
--- NOTE | 2025-01-04 11:31 | HOSPNOTE ---
AICD was turned off yesterday. The patient is quite different today, extremely lethargic moans when turned and repositioned is medicated appropriately. Please continue to medicate prior to care. Long discussion with son and how different she appears
today, I believe she is transitioning. Will continue to see patient daily. Patient continues to be inpatient appropriate for pain management.
[2025-01-04 19:29] VITALS: BP 109/51
[2025-01-05] MEDS: MORPHINE SULFATE 2 MG IV ×5 (00:47→19:17)
[2025-01-05] MEDS: VALIUM INJECTION 2 MG IV (06:09)
[2025-01-05 07:00] VITALS: BP 100/49
--- NOTE | 2025-01-05 08:33 | W.PN.HSP.1 ---
Addendum entered and electronically signed by Mason Palumbo MD 01/06/25 11:25:
PE:
General: Appears Chronically Ill
Respiratory: Decreased Breath Sounds
GI: Soft and Distended
Genito-Urinary: Sanders
Musculoskeletal: No Edema
Neuro: Sedated
Psych: lethargic
Heart: S1 S2
Original Note:
Assessment / Plan
-
79 years old female admitted to inpatient hospice for treatment of end-stage liver disease with abdominal pain and recurrent ascites
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
Failure to thrive with weakness
Ischemic cardiomyopathy status post ICD deactivation.
Hypothyroidism
Paroxysmal atrial fibrillation
Left bundle branch block
Hyponatremia
Hypotension
Patient is lethargic and not answering question. Discussed with hospice nurse. Continue with as needed morphine as needed. Continue with rate control medication. Recommended to add IV diazepam for restlessness/anxiety/insomnia. Status post
ICD deactivation.
Today's Communication
.
Interval History
-
Lethargic, unable to answer questions
Physical Exam
-
Temp Pulse Resp BP Pulse Ox
98.9 F 70 12 100/49 95
01/05/25 07:00 01/05/25 07:00 01/05/25 07:00 01/05/25 07:00 01/05/25 07:00
--- NOTE | 2025-01-05 11:54 | CM ---
CM following re: discharge planning
Pt continues inpatient hospice level of care.
CM is available for emotional support.
--- NOTE | 2025-01-05 12:47 | HOSPNOTE ---
Patient is active and family supported. Decreased urine output patient requires medications prior to turning and repositioning. Patient will be seen daily and continues to be inpatient appropriate for pain management.
[2025-01-05 19:32] VITALS: BP 97/50
[2025-01-06 07:00] VITALS: BP 98/50
[2025-01-06] MEDS: MORPHINE SULFATE 2 MG IV (09:08)
--- NOTE | 2025-01-06 09:40 | CHAP ---
Addendum entered by Klaus Sheriff 01/06/25 11:24:
Returned to pray with Beckie and family when daughter Marcia arrived. Emotional and spiritual support provided.
Original Note:
Beckie was sleeping comfortably, non-responsive. Son Pipe was present. He shared that it is difficult to see his mother first thing in the morning, when she looks like she could be in pain. After the nurse comes and Beckie is made more comfortable,
he says he feels more peaceful. National Park Ranger provided emotional and spiritual support; will return again later when sister Marcia is present. National Park Ranger will continue support through visits 2x week.
--- NOTE | 2025-01-06 11:18 | W.PN.HSP.1 ---
Assessment / Plan
-
79 years old female admitted to inpatient hospice for treatment of end-stage liver disease with abdominal pain and recurrent ascites
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
Failure to thrive with weakness
Ischemic cardiomyopathy status post ICD deactivation.
Hypothyroidism
Paroxysmal atrial fibrillation
Left bundle branch block
Hyponatremia
Hypotension
Patient is lethargic and not answering question. Discussed with hospice nurse. Continue with as needed morphine as needed. Continue with rate control medication. Recommended to add IV diazepam for restlessness/anxiety/insomnia. Status post
ICD deactivation.
Today's Communication
.
Physical Exam
-
Temp Pulse Resp BP Pulse Ox
100.6 F H 69 12 98/50 94
01/06/25 07:00 01/06/25 07:00 01/06/25 07:00 01/06/25 07:00 01/06/25 08:00
General: Appears Chronically Ill
Respiratory: Decreased Breath Sounds
GI: Soft and Distended
Genito-Urinary: Sanders
Musculoskeletal: No Edema
Neuro: Sedated
--- NOTE | 2025-01-06 12:00 | PTCARENOTE ---
Pt at 12:00 noon today. made aware to pronouse pt's . Family at bedside when event ocurred. Postmortum care performed by PCT and assisted pct with pt to htong. Belongings bag left downstairs with pt. [facility] notified.
Will cont to monitor.
--- NOTE | 2025-01-06 12:54 | W.PN.DEATH ---
Pronouncement of
-
Called to see patient to pronounce.
No spontaneous heart tones or respirations noted.
Patient not responsive to verbal stimuli.
Patient is pronounced .
Time of : 12:00
Date of : 01/06/25
Family Notified: Yes
--- NOTE | 2025-01-06 13:08 | W.DCSUMMARY ---
Discharge Summary
Discharge Data
Date of Admission: 01/02/25
Date of Discharge: 01/06/25
-
Pending Results: No
Hospital Course
79 years old female admitted to inpatient hospice for end-stage liver disease/alcoholic liver cirrhosis/hepatic encephalopathy and nonischemic cardiomyopathy. Patient was followed by hospice nurse. ICD was deactivated. Patient received comfort
care medications including morphine and Ativan. She she remained comfortable and did not have acute agitation or discomfort. She was surrounded by family. Patient peacefully on 01/06/25.
Discharge Plan
-
Patient Disposition:
Date/Time
Date/Time: 01/06/25 12:00
Discharge Date and Time
Print Language: [id number]
--- NOTE | 2025-01-06 14:14 | HOSPNOTE ---
Received patient unresponsive, Flacc 0, appeared very comfortable. Breathing shallow. Daughter and son at bedside. Patient after walking out of room. Patient was very peaceful. was able to be with family at bedside, provided emotional
support and sat with family discussing next steps. Family grieving appropriately. Feels relief that she has passed on. Updated hospice team.
== END 2025-01-06 12:00 | disposition expired | DRG 951 ==
LOC: 2 NORTH 12:13
PROVIDERS: ADMITTING PHYSICIAN Internal Medicine
DX: Z51.5 Encounter for palliative care (principal); I42.8 Other cardiomyopathies; E87.1 Hypo-osmolality and hyponatremia; K72.10 Chronic hepatic failure without coma; K76.82 Hepatic encephalopathy; R62.7 Adult failure to thrive; I48.0 Paroxysmal atrial fibrillation; K70.31 Alcoholic cirrhosis of liver with ascites; E03.9 Hypothyroidism, unspecified